=== PATIENT | male | born 1940 | race Caucasian/White ===

== ENCOUNTER 2018-04-27 10:50 | Inpatient (IN) | payer OTHER, MEDICARE ==
--- NOTE | 2018-04-27 11:11 | PDOC ---
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 The patient tried taking saline was urged to not work. Has been having a cough but denies chest pain. Denies fevers. - Physicial Exam PE: 04/27/18 11:57 GENERAL: Awake, alert, and fully oriented, +cachetic, +ill appearing HEAD: No signs of trauma EYES: EOMI, sclera anicteric, conjunctiva clear ENT: Auricles normal inspection, hearing grossly normal, nares patent, Moist mucosa NECK: Normal ROM, supple, LUNGS: Ronchorous breath sounds bilaterally, worse on left than right. Tachypneic. HEART: Regular rate and rhythm, normal S1 and S2, no murmurs, rubs or gallops EXTREMITIES: Normal range of motion, no edema. No clubbing or cyanosis. No cords, erythema, or tenderness NEUROLOGICAL: Cranial nerves II through XII grossly intact. Normal speech SKIN: Warm, Dry, normal turgor, no rashes or lesions noted. - Medical Decision Making 04/27/18 12:00 Vital Signs Temp Pulse Resp BP Pulse Ox 97.7 F 92 H 24 H 140/82 91 L 04/27/18 11:02 04/27/18 11:02 04/27/18 11:02 04/27/18 11:02 04/27/18 11:02 This is an end stage cancer patient currently on hospice with increasing difficulty breathing. R/o PNA, bronchitis. Pt noted to be hypoxic. Will need high flow nasal cannula Chest xray, labs, blood cultures. Will talk to patient family and patient in regards for desired level of care and advanced directives. Pt is DNR. Heart Score/ECG Review #1 ECG reviewed & interpreted by me at: 11:10 04/27/18 11:10 atrial flutter with variable AV block, 78, TWI II, III, avf, V4-V6, no std/patricia, QTC 469 msec
--- NOTE | 2018-04-27 11:35 | PDOC ---
History of Present Illness - General Chief Complaint: Shortness of Breath Stated Complaint: DIFFICULT BREATHING Time Seen by Provider: 04/27/18 10:59 History Source: Patient, Significant Other Exam Limitations: No Limitations - History of Present Illness Initial Comments: 04/27/18 11:27 [id number] with h/o stage IV esophageal CA with mets to brain, dx 5 mo ago, last chemo 2 weeks ago, started hospice 3 days ago, also has renal CA, kidney stones , migraines, glaucoma, diverticulosis, pacemaker indwelling, and h/o pneumonia, who p/w cough for the past several days and SOB onset last night. 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 He has had worsening productive cough, unable to lay down flat 2/2 difficulty breathing. Denies f/c/n/v/d/c, blood in sputum, dysuria, chest pain, abdominal pain, or any other new symptoms. Past History - Past Medical History Allergies/Adverse Reactions: Allergies Allergy/AdvReac Type Severity Reaction Status Date / Time No Known Allergies Allergy Verified 11/12/15 09:04 Home Medications: Ambulatory Orders Bimatoprost [Lumigan] 1 drop OU HS 03/09/16 Brinzolamide/Brimonidine Tart [Simbrinza 1%-0.2% Eye Drops] 1 drop OU BID Cabergoline 0.25 mg PO WEEKLY 03/09/16 Gabapentin 300 mg PO Q4H 03/09/16 Levothyroxine [Synthroid -] 100 mcg PO DAILY 03/09/16 Omeprazole 20 mg PO TID 03/09/16 Acetaminophen [Tylenol .Regular Strength -] 650 mg PO Q4H PRN #0 tablet Bimatoprost [Lumigan] 1 drop IO HS 04/27/18 LORazepam [Ativan] 0.5 mg PO TID 04/27/18 Ondansetron [Ondansetron Odt] 8 mg SL TID 04/27/18 Timolol Maleate [Istalol] 1 ml OU HS 04/27/18 Anemia: No Asthma: Yes (ASSOCIATED WITH GERD) Cancer: Yes (ESOPHAGEAL CANCERW/BRAIN AND CHEST LYMPH NODES METASTASIS stage 4) Cardiac Disorders: Yes (PACEMAKER-MEDTRONIC) CVA: No COPD: No CHF: No Dementia: No Diabetes: No GI Disorders: Yes (GERD W/HIATAL HERNIA,DIVERTICULOSIS) Disorders: Yes (BPH) HTN: No Hypercholesterolemia: No Liver Disease: No Seizures: No Thyroid Disease: Yes (HYPOTHYROIDISM) - Surgical History Abdominal Surgery: No Appendectomy: No Cardiac Surgery: Yes (PACEMAKER) Cholecystectomy: No Lung Surgery: No Neurologic Surgery: No Orthopedic Surgery: Yes (LAMINECTOMY WITH FUSION) - Immunization History Immunization Up to Date: No - Suicide/Smoking/Psychosocial Hx Smoking History: Former smoker Have you smoked in the past 12 months: No Number of Cigarettes Smoked Daily: 20 If you are a former smoker, when did you quit?: 50 yrs ago Information on smoking cessation initiated: No Hx Alcohol Use: No Drug/Substance Use Hx: No Substance Use Type: None Hx Substance Use Treatment: No Review of Systems - Review of Systems Able to Perform ROS?: Yes Comments:: GEN: malaise, generalized weakness, no fever, chills, or weight change HEENT: no ear pain, sore throat, vision change, or eye pain CV: no chest pain, palpitations, lightheadedness, syncope, or edema RESP: cough, SOB GI: no abdominal pain, nausea, vomiting, diarrhea, constipation, or white/black/ bloody stool : no dysuria, hematuria, incontinence, retention, bleeding, or discharge MSK: no neck/back pain, muscle weakness/pain, or joint swelling/pain NEURO: no headache, seizure, vertigo, numbness, tingling, or focal weakness PSYCH: no substance use, no behavior change SKIN: no jaundice, no rash ROS otherwise negative except as noted in HPI *Physical Exam - Vital Signs Last Vital Signs Temp Pulse Resp BP Pulse Ox 97.7 F 92 H 24 H 140/82 91 L 04/27/18 11:02 04/27/18 11:02 04/27/18 11:02 04/27/18 11:02 04/27/18 11:02 - Physical Exam Comments: GENERAL: chronically ill-appearing, A/Ox4, no distress, answers questions appropriately, speaking 1-3 word sentences HEENT: PERRLA, EOMI, moist mucous membranes NECK/BACK: no midline ttp, no spinal stepoff or deformity, no hematoma, full ROM , neck supple CARDIOVASCULAR: pacer and port in place chest wall, heart regular rate/rhythm, normal S1S2, no MGR, strong peripheral pulses, capillary refill 4 seconds, extremities wwp, no edema LUNGS/RESPIRATORY: mild-moderate respiratory distress, on non-rebreather, coarse lung sounds and cough all audible across the room, b/l coarse lung sounds on auscultation without focal areas of diminished lung sounds GI/ABDOMEN: symmetric [id number], normoactive BS, soft, no ttp, no midline pulsatile masses : no CVA tenderness EXTREMITIES: no muscle atrophy, no acute deformity SKIN: warm and dry, no pallor, no jaundice, no rash, no bruising, no skin breakdown, no cuts, no lesions NEUROLOGICAL: GCS 15, CN II-XII grossly intact, 5/5 strength proximally and distally, no facial droop Moderate Sedation - Procedure Monitoring Vital Signs: Procedure Monitoring Vital Signs Temperature 97.7 F 04/27/18 11:02 Pulse Rate 92 H 04/27/18 11:02 Respiratory Rate 24 H 04/27/18 11:02 Blood Pressure 140/82 04/27/18 11:02 O2 Sat by Pulse Oximetry (%) 91 L 04/27/18 11:02 Heart Score/ECG Review #1 04/27/18 11:08 A-flutter, rate 78, deep TWI in leads II, III, aVF, V3-V6. ED Treatment Course - LABORATORY CBC & Chemistry Diagram: 04/27/18 11:37 04/27/18 11:37 - RADIOLOGY Radiology Studies Ordered: Category Date Time Status CHEST X-RAY PORTABLE* [RAD] Stat Radiology 04/27/18 11:16 Ordered Medical Decision Making - Medical Decision Making 04/27/18 12:06 Pt with h/o CHF who p/w SOB, cough, orthopnea same as their prior CHF. Initial Vital Signs Temp Pulse Resp BP Pulse Ox 97.7 F 92 H 24 H 140/82 91 L 04/27/18 11:02 04/27/18 11:02 04/27/18 11:02 04/27/18 11:02 04/27/18 11:02 Exam: As noted in Physical Exam section. DDX IBNLT: CHF, pulmonary edema, COPD, asthma, other lung disease, PNA/ bronchitis, anemia, ACS, pericarditis, tamponade, AD, PE, PTX, allergic reaction , malignancy (e.g. causing pericardial effusion or vascular shunt), other infection, pulmonary HTN, etc. W/U ordered: CBCD CMP Mg Phos Troponin CK CKMB BNP Blood Gas UA UCx EKG CXR TX ordered: NTG SL then ggt, Lasix IV push, O2, BiPAP, Pt positioned with head of bed up Important to check Phos as severe hypophos can cause decr contractility and ventilation and rhabdo. EKG: Reviewed; results as noted in ECG Review section. RAD/CHEST X-RAY PORTABLE* Chest: Cough. A single AP view of the chest has been submitted. Since 03/10/2018, there are increased bibasilar markings especially on the left and an early infiltrate cannot be excluded. There is some fluid in the horizontal fissure. There is a prominent heart, unfolded aorta, prominent pancho, scoliosis with convexity to the right, left pacemaker and right jugular line. There is evidence of previous left shoulder surgery. Correlation and follow-up recommended. Laboratory Tests 04/27/18 04/27/18 04/27/18 11:37 11:37 11:37 WBC 10.8 H RBC 4.41 Hgb 15.0 Hct 43.4 MCV 98.3 H MCH 33.9 H MCHC 34.5 RDW 14.3 Plt Count 144 MPV 9.4 Absolute Neuts (auto) 9.5 H Neutrophils % 87.8 H D Lymphocytes % 2.3 L D Monocytes % 9.6 Eosinophils % 0.0 D Basophils % 0.3 Nucleated RBC % 0 PT with INR 13.60 H INR 1.15 H Sodium 136 Potassium 4.7 Chloride 102 Carbon Dioxide 25 Anion Gap 9 BUN 30 H Creatinine 1.1 Creat Clearance w eGFR > 60 Random Glucose 119 H Lactic Acid Calcium 9.7 Phosphorus 2.8 Magnesium 2.0 Total Bilirubin 0.5 AST 24 ALT 12 L Alkaline Phosphatase 75 Creatine Kinase 54 Troponin I 0.02 B-Natriuretic Peptide 3452.5 H Total Protein 7.1 Albumin 3.2 L Urine Color Urine Appearance Urine pH Ur Specific Daisy Urine Protein Urine Glucose (UA) Urine Ketones Urine Blood Urine Nitrite Urine Bilirubin Urine Urobilinogen Ur Leukocyte Esterase Urine WBC (Auto) Urine RBC (Auto) Urine Bacteria Hyaline Casts Urine Mucus Blood Type Antibody Screen 04/27/18 04/27/18 04/27/18 11:37 12:25 12:25 WBC RBC Hgb Hct MCV MCH MCHC RDW Plt Count MPV Absolute Neuts (auto) Neutrophils % Lymphocytes % Monocytes % Eosinophils % Basophils % Nucleated RBC % PT with INR INR Sodium Potassium Chloride Carbon Dioxide Anion Gap BUN Creatinine Creat Clearance w eGFR Random Glucose Lactic Acid 3.1 H* Calcium Phosphorus Magnesium Total Bilirubin AST ALT Alkaline Phosphatase Creatine Kinase Troponin I B-Natriuretic Peptide Total Protein Albumin Urine Color Yellow Urine Appearance Slcloudy Urine pH 6.0 Ur Specific Daisy 1.024 Urine Protein 2+ H Urine Glucose (UA) Negative Urine Ketones 1+ H Urine Blood 2+ H Urine Nitrite Positive Urine Bilirubin 2.0 Urine Urobilinogen 2.0 Ur Leukocyte Esterase 2+ H Urine WBC (Auto) 93 Urine RBC (Auto) 420 Urine Bacteria Few Hyaline Casts 2 Urine Mucus Rare Blood Type A NEGATIVE Antibody Screen Negative Reassessment: Exam unchanged. Vital Signs Temperature 97.7 F 04/27/18 11:02 Pulse Rate 92 H 04/27/18 11:02 Respiratory Rate 24 H 04/27/18 11:02 Blood Pressure 140/82 04/27/18 11:02 O2 Sat by Pulse Oximetry (%) 91 L 04/27/18 11:02 04/27/18 14:09 The Pt is unsafe for discharge at this time. They require further hospital observation, workup, and treatment. Pt needs IV abx given b/l PNA. Microblog sent to Dr. Sung for admission. Blank Decision to Admit order is placed per ED protocol. 04/27/18 14:[address] Sung; in agreement with plan for admission to IP Med/Surg. I am placing an order for flu swab and have sent the sample. *DC/Admit/Observation/Transfer Diagnosis at time of Disposition: Stage IV malignant neoplasm of esophagus Bilateral pneumonia Qualifiers: Pneumonia type: due to unspecified organism Lung location: unspecified part of lung Qualified Code(s): J18.9 - Pneumonia, unspecified organism UTI (urinary tract infection) Qualifiers: Urinary tract infection type: acute cystitis Hematuria presence: with hematuria Qualified Code(s): N30.01 - Acute cystitis with hematuria - Discharge Dispostion Condition at time of disposition: Guarded Decision to Admit order: Yes - Referrals Referrals: Avtar Melgar MD [Primary Care Provider] - - Patient Instructions - Post Discharge Activity
[2018-04-27] MEDS ORDERED: SODIUM CHLORIDE FOR INHALATION 3 ML VIAL.NEB IH ONE (12:05)
[2018-04-27] MEDS ORDERED: PIPERACILLIN/TAZOB 3.375 GM 3.375 GM in DEXTROSE 5%-WATER - 50 ML IVPB ONE (12:28)
[2018-04-27] MEDS ORDERED: VANCOMYCIN 1 GM in D5W (PRE-DOCKED) 1,000 MG/250 ML IVPB ONE (12:28)
[2018-04-27 13:05] LABS: BASO % 0.3 % (0-2.0); HEMATOCRIT 43.4 % (35.4-49); LYMPH % 2.3 % (8-40); MCH 33.9 pg (25.7-33.7); MCHC 34.5 g/dl (32.0-35.9); MEAN CELL VOLUME 98.3 fl (80-96); MEAN PLT VOLUME 9.4 fl (7.5-11.1); MONO % 9.6 % (3.8-10.2); NEUT % 87.8 % (42.8-82.8); PLATELET COUNT 144 K/MM3 (134-434); RBC 4.41 M/mm3 (4.00-5.60); RDW 14.3 % (11.9-15.9); WHITE BLOOD COUNT 10.8 K/mm3 (4.0-10.0)
[2018-04-27] MEDS ORDERED: PIPERACILLIN/TAZOB 3.375 GM 3.375 GM/50 ML BAG IVPB ONE ×2 (13:06→18:12)
[2018-04-27] MEDS ORDERED: VANCOMYCIN 1 GRAM (PRE-DOCKED) 1,000 MG/250 ML BAG IVPB ONE (13:06)
[2018-04-27 13:14] LABS: INR 1.15 (0.83-1.09); PROTHROMBIN TIME (PATIENT) 13.6 SEC (9.7-13.0)
[2018-04-27 13:52] LABS: ALBUMIN 3.2 g/dl (3.4-5.0); ALK PHOS 75 U/L (45-117); ANION GAP 9 MMOL/L (8-16); BILIRUBIN,TOTAL 0.5 mg/dL (0.2-1); BLOOD UREA NITROGEN 30 mg/dL (7-18); CALCIUM 9.7 mg/dL (8.5-10.1); CHLORIDE 102 mmol/L (98-107); CO2 25 mmol/L (21-32); CREATININE 1.1 mg/dL (0.55-1.3); GLUCOSE,RANDOM 119 mg/dL (74-106); N-TERMINAL BNP 3452.5 pg/ml (5-450); PHOSPHOROUS 2.8 mg/dL (2.5-4.9); POTASSIUM 4.7 mmol/L (3.5-5.1); SGOT/AST 24 U/L (15-37); SGPT/ALT 12 U/L (13-61); SODIUM 136 mmol/L (136-145); TOT PROT 7.1 g/dl (6.4-8.2)
[2018-04-27 14:07] LABS: URINE APPEARANCE SLCLOUDY; URINE COLOR YELLOW; URINE GLUCOSE (UA) NEGATIVE (NEGATIVE); URINE KETONE 1+ (NEGATIVE); URINE LEUK ESTERASE 2+ (NEGATIVE); URINE NITRITE POSITIVE (NEGATIVE); URINE PROTEIN 2+ (NEGATIVE)
[2018-04-27 14:11] LABS: URINE BACTERIA FEW /hpf (NONE SEEN); URINE HYALINE CAST 2 /lpf; URINE MUCUS RARE
--- NOTE | 2018-04-27 15:29 | EKG ---
Test Reason : Blood Pressure : / mmHG Vent. Rate : 078 BPM Atrial Rate : 286 BPM P-R Int : 000 ms QRS Dur : 084 ms QT Int : 412 ms P-R-T Axes : 000 -21 -87 degrees QTc Int : 469 ms ATRIAL FLUTTER WITH VARIABLE A-V BLOCK PROLONGED QT ABNORMAL ECG Confirmed by Noe Dinero MD ([id number]) on 04/27/2018 3:29:10 PM Referred By: Confirmed By:Noe Dinero MD
[2018-04-27] MEDS ORDERED: GABAPENTIN 300 MG CAPSULE (FP) PO SCH (16:00)
[2018-04-27] MEDS ORDERED: ACETAMINOPHEN 325 MG TABLET (FP) PO PRN (16:04)
--- NOTE | 2018-04-27 16:09 | HP ---
Admitting History and Physical - Primary Care Physician PCP: Avtar Melgar - Admission Chief Complaint: unable to obtain History of Present Illness: Mr Machuca is a 78 year old male who was brought in by his family secondary to difficulty breathing. Patient has a history of metastatic esophageal cancer and is on hospice. Over the past 2-3 days they noted that he was eating and drinking less and he was having more difficulty breathing. Today it appeared he was really struggling and they brought him in for further evaluation. Family is at bedside and stated that Mr Machuca has not slept well during this time, since he is hospice they requested that I do not wake him and I respected their wishes and let him sleep for his comfort. History Source: Family Member Limitations to Obtaining History: Clinical Condition - Past Medical History PUBLIC RELATIONS PROFESSIONAL: Yes: Other (metastatic nodule from prostate cancer treated with radiation and resolved on recent MRI Also, pituitary tumor treated with carbogoline) Cardiovascular: Yes: HTN, Other (pacemaker recently inserted 2016 that his MRI safe because of persistent weakness and bradycardia) Pulmonary: Yes: Other (pneumonia an ex-smoker) Gastrointestinal: Yes: Cancer (esophagus), Other (esophageal cancer treated with surgery and chemotherapy) Renal/: Yes: BPH, Other (renal cell ca s/p nephrectomy) Heme/Onc: Yes: Cancer (esophageal ca), Current Chemotherapy (chemotherapy every 3 weeks at the [facility] with [id number]) Psych: Yes: Anxiety Musculoskeletal: Yes: Chronic low back pain (history of lumbosacral disc surgery ), Other (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 No: Other (pituitary adenoma) - Past Surgical History Past Surgical History: Yes: Laminectomy (LS), Nephrectomy (right) - Smoking History Smoking history: Former smoker Have you smoked in the past 12 months: No Aproximately how many cigarettes per day: 20 If you are a former smoker, when did you quit?: 50 yrs ago - Alcohol/Substance Use Hx Alcohol Use: No History of Substance Use: reports: None - Social History Usual Living Arrangement: Yes: With Spouse ADL: Support Services Occupation: retired History of Recent Travel: No Home Medications - Allergies Allergies/Adverse Reactions: Allergies Allergy/AdvReac Type Severity Reaction Status Date / Time No Known Allergies Allergy Verified 11/12/15 09:04 - Home Medications Home Medications: Ambulatory Orders Bimatoprost [Lumigan] 1 drop OU HS 03/09/16 Brinzolamide/Brimonidine Tart [Simbrinza 1%-0.2% Eye Drops] 1 drop OU BID Cabergoline 0.25 mg PO WEEKLY 03/09/16 Gabapentin 300 mg PO Q4H 03/09/16 Levothyroxine [Synthroid -] 100 mcg PO DAILY 03/09/16 Omeprazole 20 mg PO TID 03/09/16 Acetaminophen [Tylenol .Regular Strength -] 650 mg PO Q4H PRN #0 tablet Bimatoprost [Lumigan] 1 drop IO HS 04/27/18 LORazepam [Ativan] 0.5 mg PO TID 04/27/18 Ondansetron [Ondansetron Odt] 8 mg SL TID 04/27/18 Timolol Maleate [Istalol] 1 ml OU HS 04/27/18 Family Disease History - Family Disease History Family Disease History: Other: Father ( at 78 of a CVA), Mother (lived to 100) Review of Systems Unable to obtain ROS, reason: patient sleeping Physical Examination Vital Signs: Vital Signs Temperature 36.5 C 04/27/18 11:02 Pulse Rate 65 04/27/18 15:51 Respiratory Rate 19 04/27/18 15:51 Blood Pressure 138/83 04/27/18 15:51 O2 Sat by Pulse Oximetry (%) 93 L 04/27/18 15:51 Constitutional: Yes: No Distress, Thin Cardiovascular: Yes: Regular Rate and Rhythm. No: Gallop, Murmur, Rub Respiratory: Yes: Regular, On Venti-Mask, Rhonchi. No: CTA Bilaterally, Rales, Tachypnea, Wheezes Gastrointestinal: Yes: Normal Bowel Sounds, Soft. No: Distention, Tenderness Extremities: Yes: WNL Edema: No Labs: CBC, BMP 04/27/18 11:37 04/27/18 11:37 Imaging - Results Chest X-ray: Report Reviewed, Image Reviewed Problem List - Problems (1) Bilateral pneumonia Assessment/Plan: -unclear if aspiration vs CAP -consult ID -will place on [facility] Code(s): J18.9 - PNEUMONIA, UNSPECIFIED ORGANISM Qualifiers: Pneumonia type: due to unspecified organism Lung location: unspecified part of lung Qualified Code(s): J18.9 - Pneumonia, unspecified organism (2) Acute respiratory failure with hypoxia Assessment/Plan: -treat pneumonia -venti mask for oxygenation Code(s): J96.01 - ACUTE RESPIRATORY FAILURE WITH HYPOXIA (3) Stage IV malignant neoplasm of esophagus Assessment/Plan: -on hospice -patient taking gabapentin 300mg q4h, dilaudid 2mg qid, ativan 0.5mg tid, and zofran 8mg tid -recognize that these are high doses of medications, however family states patient has severe pain and nausea/vomiting -will continue regimen as patient is hospice and do not want him in pain or uncomfortable -soft diet Code(s): C15.9 - MALIGNANT NEOPLASM OF ESOPHAGUS, UNSPECIFIED (4) UTI (urinary tract infection) Assessment/Plan: -noted on urinalysis -joie as above -follow up culture results Code(s): N39.0 - URINARY TRACT INFECTION, SITE NOT SPECIFIED Qualifiers: Urinary tract infection type: acute cystitis Hematuria presence: with hematuria Qualified Code(s): N30.01 - Acute cystitis with hematuria (5) Glaucoma Assessment/Plan: -continue eye drops Code(s): H40.9 - UNSPECIFIED GLAUCOMA (6) Hypothyroid Assessment/Plan: -continue synthroid Code(s): E03.9 - HYPOTHYROIDISM, UNSPECIFIED
[2018-04-27] MEDS: DEXTROSE 5%-0.45% SALINE 1,000 ML IV SCH (17:00)
[2018-04-27] MEDS ORDERED: HYDROmorphone HCL 2 MG TABLET ONE ×2 (17:11→21:36)
[2018-04-27] MEDS ORDERED: GABAPENTIN 100 MG CAPSULE (FP) ONE ×2 (17:13→21:36)
[2018-04-27] MEDS: HYDROmorphone HCL 2 MG TABLET PO SCH ×3 (17:26→22:11)
[2018-04-27] MEDS: GABAPENTIN 300 MG CAPSULE (FP) PO SCH ×2 (17:27→22:12)
[2018-04-27] MEDS: PIPERACILLIN/TAZOB 3.375 GM 3.375 GM in DEXTROSE 5%-WATER - 50 ML IVPB SCH (18:18)
[2018-04-27] MEDS: LACTOBACILLUS ACIDOPHILUS 1 TABLET PO SCH (18:18)
[2018-04-27] MEDS ORDERED: PANTOPRAZOLE 40 MG TABLET (FP) ONE (21:36)
[2018-04-27] MEDS ORDERED: LORazepam 0.5 MG TABLET ONE (21:36)
[2018-04-27] MEDS: LATANOPROST 0.005% OPHTH SOLN 2.5ML BOTTLE OU SCH (21:40)
[2018-04-27] MEDS: PANTOPRAZOLE 20 MG TABLET (FP) PO SCH (21:41)
[2018-04-27] MEDS ORDERED: PATIENT'S OWN MEDICATION (NON-FORMULARY) (Bimatoprost [Lumigan] 1 DROP) OU SCH (22:00)
[2018-04-27] MEDS ORDERED: PATIENT'S OWN MEDICATION (NON-FORMULARY) (Omeprazole 20 MG) PO SCH (22:00)
[2018-04-27] MEDS ORDERED: PATIENT'S OWN MEDICATION (NON-FORMULARY) (Ondansetron [Zofran *Odt*] 8 MG) SL SCH (22:00)
[2018-04-27] MEDS: LORazepam 0.5 MG TABLET PO SCH (22:11)
[2018-04-27] MEDS: ONDANSETRON *ODT* 4 MG TABLET SL SCH (22:12)
[2018-04-28] MEDS ORDERED: PIPERACILLIN/TAZOBACTAM 3.375 GM VIAL IVPB ONE ×3 (00:41→16:40)
[2018-04-28] MEDS ORDERED: DEXTROSE 5%-WATER - 50 ML IVPB ONE ×3 (00:41→16:40)
[2018-04-28] MEDS: PIPERACILLIN/TAZOB 3.375 GM 3.375 GM in DEXTROSE 5%-WATER - 50 ML IVPB SCH ×2 (01:01→17:08)
[2018-04-28] MEDS: GABAPENTIN 300 MG CAPSULE (FP) PO SCH ×6 (01:03→22:45)
[2018-04-28 04:10] VITALS: BMI 17.8
[2018-04-28] MEDS: LEVOTHYROXINE NA 100 MCG TABLET (FP) PO SCH (06:57)
[2018-04-28] MEDS: PANTOPRAZOLE 20 MG TABLET (FP) PO SCH ×3 (06:58→22:39)
[2018-04-28] MEDS: ONDANSETRON *ODT* 4 MG TABLET SL SCH ×3 (06:58→22:39)
[2018-04-28] MEDS: LORazepam 0.5 MG TABLET PO SCH ×3 (06:59→22:39)
[2018-04-28] MEDS ORDERED: TIMOLOL MALEATE OU SCH (07:00)
[2018-04-28 07:27] LABS: BASO % 0.2 % (0-2.0); HEMATOCRIT 40.2 % (35.4-49); HEMOGLOBIN 14.3 GM/dL (11.7-16.9); LYMPH % 5.9 % (8-40); MCH 34.7 pg (25.7-33.7); MCHC 35.5 g/dl (32.0-35.9); MEAN CELL VOLUME 97.7 fl (80-96); MEAN PLT VOLUME 9.7 fl (7.5-11.1); NEUT % 85.9 % (42.8-82.8); PLATELET COUNT 108 K/MM3 (134-434); RBC 4.11 M/mm3 (4.00-5.60); RDW 14.1 % (11.9-15.9); WHITE BLOOD COUNT 6.4 K/mm3 (4.0-10.0)
[2018-04-28 07:33] LABS: ANION GAP 5 MMOL/L (8-16); BLOOD UREA NITROGEN 23 mg/dL (7-18); CALCIUM 9.4 mg/dL (8.5-10.1); CHLORIDE 102 mmol/L (98-107); CO2 29 mmol/L (21-32); CREATININE 0.9 mg/dL (0.55-1.3); GLUCOSE,RANDOM 102 mg/dL (74-106); PHOSPHOROUS 2.2 mg/dL (2.5-4.9); POTASSIUM 4.4 mmol/L (3.5-5.1); SODIUM 135 mmol/L (136-145)
[2018-04-28] MEDS: IPRATROPIUM BR 0.02% 0.5 MG/2.5 ML VIAL.NEB. NEB PRN (08:50)
[2018-04-28] MEDS: ALBUTEROL SO4 0.083% IH SOL 2.5 MG/3 ML VIAL.NEB. NEB PRN ×2 (08:50→13:45)
[2018-04-28 08:55] LABS: URINE APPEARANCE CLEAR; URINE BILIRUBIN NEGATIVE (<2.0 mg/dL); URINE COLOR YELLOW; URINE GLUCOSE (UA) NEGATIVE (NEGATIVE); URINE KETONE NEGATIVE (NEGATIVE); URINE LEUK ESTERASE TRACE (NEGATIVE); URINE NITRITE POSITIVE (NEGATIVE); URINE PROTEIN 2+ (NEGATIVE); URINE UROBILINOGEN NEGATIVE mg/dL (0.2-1.0)
[2018-04-28 09:11] LABS: EPI CELLS RARE /HPF (FEW); URINE BACTERIA FEW /hpf (NONE SEEN)
[2018-04-28] MEDS ORDERED: PIPERACILLIN/TAZOB 3.375 GM 3.375 GM in DEXTROSE 5%-WATER - 50 ML IVPB SCH ×2 (10:00→10:30)
[2018-04-28] MEDS ORDERED: ALBUTEROL SO4 0.083% IH SOL 2.5 MG/3 ML VIAL.NEB. NEB SCH (10:00)
[2018-04-28] MEDS ORDERED: ACETYLCYSTEINE 20% 200MG/ML 30 ML VIAL *FOR ORAL / INH USE ONLY NEB SCH (10:00)
[2018-04-28] MEDS: HYDROmorphone HCL 2 MG TABLET PO SCH ×4 (10:06→22:40)
[2018-04-28] MEDS: LACTOBACILLUS ACIDOPHILUS 1 TABLET PO SCH (10:06)
[2018-04-28] MEDS: TIMOLOL 0.5% OPHTHALMIC SOL 5 ML BOTTLE OU SCH (10:07)
[2018-04-28] MEDS: DEXTROSE 5%-0.45% SALINE 1,000 ML IV SCH ×2 (10:10→17:09)
[2018-04-28] MEDS ORDERED: NAPH,MB-DB/K PH,MBDB POWDER PACKET PO ONE (10:33)
--- NOTE | 2018-04-28 10:33 | PN ---
Physical Exam: SUBJECTIVE: Patient seen and examined by me at bedside No acute events Patient is in bed eating breakfast Reports breathing has improved, however, states he is not able to cough and clear the sputum. Patient otherwise denies any chest pain, palpitations, nausea, vomiting, abdominal pain, headaches, loss of consciousness OBJECTIVE: Vital Signs Period Temp Pulse Resp BP Sys/Jhaveri Pulse Ox Last 24 Hr 97.7 F-98.3 F 61-92 18-24 123-147/65-83 91-96 GENERAL: The patient is awake, alert, and fully oriented, in no acute distress. EYES: Sclera anicteric, conjunctiva clear. No ptosis. ENT: Moist mucous membranes. LUNGS: Bilateral rhonchi. no accessory muscle use. 02 NC HEART: RRR, normal S1 and S2 without murmur, rub or gallop. ABDOMEN: Soft, nontender, nondistended, normoactive bowel sounds, no guarding EXTREMITIES: No edema. NEUROLOGICAL: No focal deficits. No facial asymmetry Laboratory Results 04/28/18 06:00 04/28/18 06:00 04/28/18 06:00 Calcium 9.4 Phosphorus 2.2 L Magnesium 2.0 Urine Color Yellow 04/28/18 07:00 Urine Appearance Clear 04/28/18 07:00 Urine pH 6.0 (5.0-8.0) 04/28/18 07:00 Ur Specific [place] 1.028 (1.010-1.035) 04/28/18 07:00 Urine Protein 2+ (NEGATIVE) H 04/28/18 07:00 Urine Glucose (UA) Negative (NEGATIVE) 04/28/18 07:00 Urine Ketones Negative (NEGATIVE) 04/28/18 07:00 Urine Blood 3+ (NEGATIVE) H 04/28/18 07:00 Urine Nitrite Positive (NEGATIVE) 04/28/18 07:00 Urine Bilirubin Negative (<2.0 mg/dL) 04/28/18 07:00 Ur Leukocyte Esterase Trace (NEGATIVE) 04/28/18 07:00 Ur Epithelial Cells Rare /HPF (FEW) 04/28/18 07:00 Urine Bacteria Few /hpf (NONE SEEN) 04/28/18 07:00 Urine Mucus Rare 04/27/18 12:25 Active Medications Generic Name Dose Route Start Last Admin Trade Name Freq PRN Reason Stop Dose Admin Acetaminophen 650 mg 04/27/18 16:04 Tylenol - PO Q4H PRN FEVER Acetylcysteine 200 mg 04/28/18 10:00 Mucomyst 20 Oral / Inh Use Only* NEB RBID LAYTON Albuterol Sulfate 1 amp 04/27/18 16:04 Ventolin 0.083% Nebulizer Soln - NEB Q6H PRN SHORT OF BREATH/WHEEZING Albuterol Sulfate 1 amp 04/28/18 10:00 Ventolin 0.083% Nebulizer Soln - NEB RBID LAYTON Gabapentin 300 mg 04/27/18 18:00 04/28/18 10:06 Neurontin - PO 300 mg Q4HPO LAYTON Administration Hydromorphone HCl 2 mg 04/27/18 16:03 04/28/18 10:06 Dilaudid - PO 2 mg QID LAYTON Administration Dextrose/Sodium Chloride 1,000 mls @ 42 mls/hr 04/27/18 16:15 04/28/18 10:10 D5-1/2ns - IV 42 mls/hr ASDIR LAYTON Administration Piperacillin Sod/Tazobactam 50 mls @ 100 mls/hr 04/28/18 10:00 Sod 3.375 gm/ Dextrose IVPB Q8H-IV [facility] Protocol Ipratropium [place] 1 amp 04/27/18 16:04 Atrovent 0.02% Nebulizer - NEB Q6H PRN WHEEZING Lactobacillus Acidophilus 1 tab 04/27/18 16:15 04/28/18 10:06 Bacid - PO 1 tab DAILY LAYTON Administration Latanoprost 1 drop 04/27/18 22:00 04/27/18 21:40 Xalatan 0.005% Eye Drops - OU 1 drop HS LAYTON Administration Levothyroxine Sodium 100 mcg 04/28/18 07:00 04/28/18 06:57 Synthroid - PO 100 mcg ACBK LAYTON Administration Lorazepam 0.5 mg 04/27/18 22:00 04/28/18 06:59 Ativan - PO 0.5 mg TID LAYTON Administration Non-Formulary Medication 0.25 mg 04/28/18 10:00 Cabergoline PO Lazar@1000 LAYTON Ondansetron HCl 8 mg 04/27/18 22:00 04/28/18 06:58 Zofran Odt - SL 8 mg TID LAYTON Administration Pantoprazole Sodium 20 mg 04/27/18 22:00 04/28/18 06:58 Protonix - PO 20 mg TID LAYTON Administration Timolol Maleate 1 drop 04/28/18 10:00 04/28/18 10:07 Timoptic 0.5% OU 1 drop DAILY LAYTON Administration ASSESSMENT/PLAN: Patient is a 78 year old male who was brought in by his family due to difficulty breathing and was found to have bilateral pneumonia. Patient admitted for further monitoring and management. Sepsis Secondary to Bilateral Pneumonia -Unsure if Aspiration vs CAP -Patient on initial presentation with HR >90 and RR >20 -Chest X-Ray revealed infiltrate -Zosyn 3.375gm IVPB Q8H -ID consult placed -Aspiration precautions -Mucomyst ordered as patient is unable to cough and clear his sputum -02 as needed Acute Hypoxic Respiratory Failure-Resolving -Likely secondary to pneumonia -Was placed on Venti-mask and is now only requiring 02 NC -Continue IV antibiotics with Zosyn 3.375gm IVPB Q8H -Continue Albuterol Nebulizer 1amp Q6H prn and Atrovent Q6H prn -Aspiration precautions -Maintain 02 >95% Stage IV Esophageal Cancer -Patient currently on Hospice -Continue Gabapentin 300mg Q4H, Dilaudid 2mg QID, Ativan 0.5mg TID, and Zofran 8mg TID -Patient and patient's family request that he remains on his medication regimen as they do not want him uncomfortable or in pain -Continue with Soft Diet -Supportive therapy Urinary Tract Infection -Urine cultures growing Staph coagulase -Continue IV Abx with Zosyn 3.375gm IVPB Q8H -Sensitivities pending Glaucoma -Continue home eye drops with Timoptic 1 drop ou daily and Xalatan 1 drop ou HS Hypothyroidism -Synthroid 100mcg before breakfast Pituitary Adenoma -Continue home medication Cabergoline 0.25mg every sunday F/E/N -D5-1/2 NS @42mls/hr -Hypophosphatemia. Replete and repeat -Soft diet Prophylaxis -High risk. -Protonix 20mg TID for GI. Disposition -DNR/DNI -Continue IV abx for Pneumonia Cristina Orellana [id number] Visit type - Emergency Visit Emergency Visit: Yes ED Registration Date: 04/27/18 Care time: The patient presented to the Emergency Department on the above date and was hospitalized for further evaluation of their emergent condition. - New Patient This patient is new to me today: Yes Date on this admission: 04/28/18 - Critical Care Critical Care patient: No
[2018-04-28] MEDS ORDERED: CABERGOLINE 0.5 MG PO SCH (11:00)
[2018-04-28] MEDS ORDERED: PT OWN MED DRAWER 7, Y5N ONE ×2 (11:41→23:47)
--- NOTE | 2018-04-28 13:13 | PN ---
Teaching Attending Note Name of Resident: Cristina Orellana ATTENDING PHYSICIAN STATEMENT I saw and evaluated the patient. I reviewed the resident's note and discussed the case with the resident. I agree with the resident's findings and plan as documented. SUBJECTIVE: Mr Machuca says he is well today. States his breathing is much improved. Has chronic pain but this is controlled. No cp or n/v. OBJECTIVE: Last Vital Signs Temp Pulse Resp BP Pulse Ox 36.3 C L 93 H 18 134/87 97 04/28/18 09:00 04/28/18 09:00 04/28/18 09:00 04/28/18 09:00 04/28/18 09:00 Gen: nad, thin Pulm: ronchi bilaterally CV: rrr w/o m/r/g Abd: +bs, s/nt/nd Ext: no c/c/e CBC, BMP 04/28/18 06:00 04/28/18 06:00 ASSESSMENT AND PLAN: (1) Bilateral pneumonia Assessment/Plan: -unclear if aspiration vs CAP -ID consulted -continue zosyn currently but will await ID evaluation -may be able to de-escalate Code(s): J18.9 - PNEUMONIA, UNSPECIFIED ORGANISM Qualifiers: Pneumonia type: due to unspecified organism Lung location: unspecified part of lung Qualified Code(s): J18.9 - Pneumonia, unspecified organism (2) Acute respiratory failure with hypoxia Assessment/Plan: -improving with antibiotic treatment -titrate oxygen -chest PT and mucomyst to mobilize secretions Code(s): J96.01 - ACUTE RESPIRATORY FAILURE WITH HYPOXIA (3) Stage IV malignant neoplasm of esophagus Assessment/Plan: -continue current regimen for pain control Code(s): C15.9 - MALIGNANT NEOPLASM OF ESOPHAGUS, UNSPECIFIED (4) UTI (urinary tract infection) Assessment/Plan: -urine culture showing coag negative staph -await ID evaluation Code(s): N39.0 - URINARY TRACT INFECTION, SITE NOT SPECIFIED Qualifiers: Urinary tract infection type: acute cystitis Hematuria presence: with hematuria Qualified Code(s): N30.01 - Acute cystitis with hematuria (5) Glaucoma Assessment/Plan: -continue eye drops Code(s): H40.9 - UNSPECIFIED GLAUCOMA (6) Hypothyroid Assessment/Plan: -continue synthroid Code(s): E03.9 - HYPOTHYROIDISM, UNSPECIFIED Problem List - Problems (1) Bilateral pneumonia Code(s): J18.9 - PNEUMONIA, UNSPECIFIED ORGANISM Qualifiers: Pneumonia type: due to unspecified organism Lung location: unspecified part of lung Qualified Code(s): J18.9 - Pneumonia, unspecified organism (2) Acute respiratory failure with hypoxia Code(s): J96.01 - ACUTE RESPIRATORY FAILURE WITH HYPOXIA (3) Stage IV malignant neoplasm of esophagus Code(s): C15.9 - MALIGNANT NEOPLASM OF ESOPHAGUS, UNSPECIFIED (4) UTI (urinary tract infection) Code(s): N39.0 - URINARY TRACT INFECTION, SITE NOT SPECIFIED Qualifiers: Urinary tract infection type: acute cystitis Hematuria presence: with hematuria Qualified Code(s): N30.01 - Acute cystitis with hematuria (5) Glaucoma Code(s): H40.9 - UNSPECIFIED GLAUCOMA (6) Hypothyroid Code(s): E03.9 - HYPOTHYROIDISM, UNSPECIFIED
--- NOTE | 2018-04-28 13:33 | PN ---
Progress Note (short form) - Note Progress Note: ID CONSULT DICTATED ? ASP PNEUMONIA R/O NON NEUTROPENIC SEPSIS THROMBOCYTOPENIA LACTIC ACIDOSIS METASTATIC ESOPHAGEAL CA + URINE C/S= CONTAMINANT AWAIT BC CONTINUE EMPIRIC ZOSYN
--- NOTE | 2018-04-28 15:27 | CONS ---
INFECTIOUS DISEASE CONSULTATION DATE OF CONSULTATION: DATE OF DICTATION: 04/28/2018 A 78-year-old male evaluated for pneumonia. The patient has a history of stage IV esophageal cancer. He was admitted with a 2-day history of worsening shortness of breath, cough, congestion, and decreased oral intake. A chest x-ray was performed and showed increased markings at the left base suggestive of pneumonia. The patient has had a cough productive of whitish sputum. He has difficulty expectorating. He is unable to lay flat secondary to shortness of breath. He has a history of stage IV esophageal cancer with metastases to the brain. He last received chemotherapy approximately 2 weeks ago. He denies any chest pain or shortness of breath. No reports of high-grade fever or shaking chills. He was last hospitalized here over 2 years ago. No known ill contacts. No recent travel. PAST MEDICAL HISTORY: Positive for esophageal CA with brain metastases, renal cancer, nephrolithiasis, glaucoma, diverticulosis, gastroesophageal reflux, BPH, hypothyroidism. PAST SURGICAL HISTORY: Status post permanent pacemaker and laminectomy. ALLERGIES: No known allergies. MEDICATIONS: At the present time include Tylenol, albuterol, Neurontin, Dilaudid, Synthroid, Ativan, and Zosyn. SOCIAL HISTORY: Former smoker. Lives in the community. SYSTEMS REVIEW: Neurologic: No loss of consciousness, seizure activity, or focal weakness. Cardiac: Negative chest pain or palpitations. Respiratory: As per HPI. Gastrointestinal: As per HPI. Genitourinary: Negative for urinary tract infection. LABORATORY DATA: White count 6.4 with 85% neutrophils, 6% lymphocytes, 8% monocytes; hematocrit 40.2; platelets 108. BUN 23, creatinine 0.9. Lactic acid 3.1. Urinalysis: White cells 35. Flu swab negative. Cultures pending. Urine culture: Coagulase negative staphylococcus. PHYSICAL EXAMINATION: General: He is awake. He is cachectic. He is chronically ill appearing. Vital Signs: Temperature 97.4; blood pressure 134/87; pulse 93, regular; respirations 18 per minute. HEENT: Sclerae are anicteric. Dry mucous membranes. Heart: Sounds S1, S2. Lungs: Coarse rhonchi bilaterally. Port Site, Right Chest: No erythema or tenderness. Abdomen: Soft and nontender. Extremities: Negative for edema. IMPRESSION: 1. Probable aspiration pneumonia. 2. Rule out non-neutropenic sepsis. 3. Lactic acidosis. 4. Metastatic esophageal cancer. 5. Thrombocytopenia, possibly secondary to sepsis. 6. Positive urine culture consistent with contaminant. Await cultures. Continue empiric Zosyn. Aspiration precautions. Overall prognosis is poor. Will follow. Thank you for the kind referral. CORBY WYLIE M.D. [id number]
[2018-04-28] MEDS: ALBUTEROL SO4 0.083% IH SOL 2.5 MG/3 ML VIAL.NEB. NEB SCH (20:15)
[2018-04-28] MEDS: ACETYLCYSTEINE 20% 200MG/ML 30 ML VIAL *FOR ORAL / INH USE ONLY NEB SCH (20:15)
[2018-04-28] MEDS: HEPARIN NA (PORCINE) 5,000 UNITS/ML 1ML VIAL SQ SCH (22:40)
[2018-04-28] MEDS: LATANOPROST 0.005% OPHTH SOLN 2.5ML BOTTLE OU SCH (23:35)
[2018-04-29] MEDS ORDERED: PIPERACILLIN/TAZOBACTAM 3.375 GM VIAL IVPB ONE ×3 (01:01→16:53)
[2018-04-29] MEDS ORDERED: DEXTROSE 5%-WATER - 50 ML IVPB ONE ×3 (01:01→16:54)
[2018-04-29] MEDS: PIPERACILLIN/TAZOB 3.375 GM 3.375 GM in DEXTROSE 5%-WATER - 50 ML IVPB SCH ×3 (01:05→17:32)
[2018-04-29] MEDS: GABAPENTIN 300 MG CAPSULE (FP) PO SCH ×6 (02:00→21:58)
[2018-04-29] MEDS: DEXTROSE 5%-0.45% SALINE 1,000 ML IV SCH ×2 (06:11→16:23)
[2018-04-29] MEDS: ONDANSETRON *ODT* 4 MG TABLET SL SCH ×3 (06:13→21:57)
[2018-04-29] MEDS: HEPARIN NA (PORCINE) 5,000 UNITS/ML 1ML VIAL SQ SCH ×3 (06:13→21:57)
[2018-04-29] MEDS: LEVOTHYROXINE NA 100 MCG TABLET (FP) PO SCH (06:13)
[2018-04-29] MEDS: LORazepam 0.5 MG TABLET PO SCH ×3 (06:13→21:58)
[2018-04-29] MEDS: PANTOPRAZOLE 20 MG TABLET (FP) PO SCH ×3 (06:13→21:57)
[2018-04-29 07:24] LABS: HEMATOCRIT 36.8 % (35.4-49); HEMOGLOBIN 12.5 GM/dL (11.7-16.9); MCH 33.4 pg (25.7-33.7); MEAN CELL VOLUME 98.2 fl (80-96); MEAN PLT VOLUME 9.6 fl (7.5-11.1); PLATELET COUNT 122 K/MM3 (134-434); RBC 3.75 M/mm3 (4.00-5.60); RDW 14.7 % (11.9-15.9); WHITE BLOOD COUNT 6.4 K/mm3 (4.0-10.0)
[2018-04-29] MEDS: ACETYLCYSTEINE 20% 200MG/ML 30 ML VIAL *FOR ORAL / INH USE ONLY NEB SCH ×2 (07:35→20:49)
[2018-04-29] MEDS: ALBUTEROL SO4 0.083% IH SOL 2.5 MG/3 ML VIAL.NEB. NEB SCH ×2 (07:35→20:49)
[2018-04-29 07:59] LABS: ANION GAP 7 MMOL/L (8-16); BLOOD UREA NITROGEN 19 mg/dL (7-18); CALCIUM 9.4 mg/dL (8.5-10.1); CHLORIDE 101 mmol/L (98-107); CO2 28 mmol/L (21-32); CREATININE 0.8 mg/dL (0.55-1.3); GLUCOSE,RANDOM 109 mg/dL (74-106); MAGNESIUM 2.1 mg/dL (1.8-2.4); PHOSPHOROUS 2.3 mg/dL (2.5-4.9); POTASSIUM 3.9 mmol/L (3.5-5.1); SODIUM 136 mmol/L (136-145)
[2018-04-29] MEDS: POLYETHYLENE GLYCOL 3350 119 GM BTL PO SCH (09:04)
[2018-04-29] MEDS: LACTOBACILLUS ACIDOPHILUS 1 TABLET PO SCH (09:33)
[2018-04-29] MEDS: HYDROmorphone HCL 2 MG TABLET PO SCH ×4 (09:33→21:57)
[2018-04-29] MEDS: TIMOLOL 0.5% OPHTHALMIC SOL 5 ML BOTTLE OU SCH (10:01)
--- NOTE | 2018-04-29 11:41 | CON.CARD ---
Consult Consult Specialty:: cardio - History of Present Illness Chief Complaint: respiratory distress History of Present Illness: 78 M brought by family for difficulty breathing. being seen by ID, possible aspiration pneumonia/sepsis. ekg showed atrial flutter--we were consulted pt with metastatic esophageal cancer (+ BRAIN METS) on hospice. pt and grandaughter report he has chest muscle weakness with inability to clear secretions, and chronic phlegmy chest congestion with cough for long time related to his cancer dx. however phlegm increased of late. pt states he experienced chest tightness on day of admit, not severe, and ongoing "all day" every day since. + pleuritic component (worse with cough and breathing). not positional. 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 (metastatic nodule from prostate cancer treated with radiation and resolved on recent MRI Also, pituitary tumor treated with carbogoline) Cardio/Vascular: Yes: HTN, Other (pacemaker recently inserted 2016 that his MRI safe because of persistent weakness and bradycardia) Pulmonary: Yes: Other (pneumonia an ex-smoker) Gastrointestinal: Yes: Cancer (esophagus), Other (esophageal cancer treated with surgery and chemotherapy) Renal/: Yes: BPH, Other (renal cell ca s/p nephrectomy) Psych: Yes: Anxiety Musculoskeletal: Yes: Chronic low back pain (history of lumbosacral disc surgery ), Other (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 No: Other (pituitary adenoma) - Past Surgical History Past Surgical History: Yes: Laminectomy (LS), Nephrectomy (right) - Alcohol/Substance Use Hx Alcohol Use: No History of Substance Use: reports: None - Smoking History Smoking history: Former smoker Have you smoked in the past 12 months: No Aproximately how many cigarettes per day: 20 If you are a former smoker, when did you quit?: 50 yrs ago - Social History ADL: Support Services Occupation: retired History of Recent Travel: No Home Medications - Allergies Allergies/Adverse Reactions: Allergies Allergy/AdvReac Type Severity Reaction Status Date / Time No Known Allergies Allergy Verified 11/12/15 09:04 - Home Medications Home Medications: Ambulatory Orders Bimatoprost [Lumigan] 1 drop OU HS 03/09/16 Brinzolamide/Brimonidine Tart [Simbrinza 1%-0.2% Eye Drops] 1 drop OU BID Cabergoline 0.25 mg PO WEEKLY 03/09/16 Gabapentin 300 mg PO Q4H 03/09/16 Levothyroxine [Synthroid -] 100 mcg PO DAILY 03/09/16 Omeprazole 20 mg PO TID 03/09/16 Acetaminophen [Tylenol .Regular Strength -] 650 mg PO Q4H PRN #0 tablet Bimatoprost [Lumigan] 1 drop IO HS 04/27/18 LORazepam [Ativan] 0.5 mg PO TID 04/27/18 Ondansetron [Ondansetron Odt] 8 mg SL TID 04/27/18 Timolol Maleate [Istalol] 1 ml OU HS 04/27/18 Family Disease History - Family Disease History Family Disease History: Other: Father ( at 78 of a CVA), Mother (lived to 100) Review of Systems - Review of Systems Constitutional: denies: Chills, Fever Eyes: denies: Eye Pain HENT: denies: Nasal Congestion Neck: denies: Stiffness Cardiovascular: denies: Palpitations Respiratory: denies: Orthopnea, PND Gastrointestinal: denies: Diarrhea, Rectal Bleeding Genitourinary: denies: Burning, Hematuria Musculoskeletal: denies: Muscle Pain Integumentary: denies: Rash Neurological: denies: Numbness, Seizure, Syncope Endocrine: denies: Excessive Sweating Hematology/Lymphatic: denies: Excessive Bleeding Vital Signs: Vital Signs Temperature 98.8 F 04/29/18 10:43 Pulse Rate 104 H 04/29/18 10:43 Respiratory Rate 20 04/29/18 10:43 Blood Pressure 122/77 04/29/18 10:43 O2 Sat by Pulse Oximetry (%) 97 04/28/18 20:24 Constitutional: Yes: Well Nourished, No Distress Eyes: No: Sclera Icterus HENT: No: Nasal Congestion Neck: No: Decreased ROM Respiratory: Yes: Rhonchi (loud diffusely). No: Accessory Muscle Use, Rales, Wheezes Gastrointestinal: Yes: Normal Bowel Sounds. No: Distention, Hepatomegaly, Palpable Mass, Tenderness Cardiovascular: Yes: Regular Rate and Rhythm JVD: No Carotid Bruit: No PMI: Non-Displaced Heart Sounds: Yes: S1, S2. No: Gallop Murmur: No: Systolic Murmur, Diastolic Murmur Musculoskeletal: Yes: Other (No kyphosis) Extremities: No: Cold, Cyanosis Edema: No Peripheral Pulses: 2+ Left Carotid, 2+ Right Carotid, 2+ Left Doralis Pedis, 2+ Right Dorsalis Pedis Integumentary: No: Jaundice Neurological: Yes: Alert, Oriented (x3) Psychiatric: No: Agitated - Other Data Labs, Other Data: CBC, BMP 04/29/18 06:45 04/29/18 06:45 INR, PTT INR 1.15 (0.83-1.09) H 04/27/18 11:37 Laboratory Tests 04/27/18 04/27/18 04/29/18 11:37 12:25 06:45 WBC 6.4 Hgb 12.5 Plt Count 122 L Sodium Potassium Carbon Dioxide BUN Creatinine Lactic Acid 3.1 H* Magnesium AST 24 ALT 12 L Troponin I 0.02 B-Natriuretic Peptide 3452.5 H 04/29/18 06:45 WBC Hgb Plt Count Sodium 136 Potassium 3.9 Carbon Dioxide 28 BUN 19 H Creatinine 0.8 Lactic Acid Magnesium 2.1 AST ALT Troponin I B-Natriuretic Peptide Assessment/Plan MPI 2014: no ischemia, normal EF Echo 2017: nl LV/EF. nl RV. mild AI/MR/TR ECG: atypical atrial flutter waves V1/V2 with 4:1 AV conduction, not seen in other leads. diffuse TWIs new vs 08/18/15 CXR: incr bibasilar markings, rule out early infiltrate LLL. fluid in horizontal fissure atrial flutter: -? atrial flutter waves in leads V1/V2 on admitting ECG, though suspect this is sinus with artifact, as these are not visible in other leads, in which the P waves resemble his sinus rhythm p waves from prior ekg. strip reviewed with EP who agrees sinus is more likely here. -has had brief episodes of AF on interrogation of dual-chamber PM with dr currie per office notes-AC deferred due to low burden and hi bleed risk -no significant tachycardia. would tolerate resting HR to 110s given likelihood of exacerbating orthostatic hypotension with AVN blockers -pt not a candidate for AC for CVA prevention given low life expectancy and very hi bleed risk in light of esophageal cancer metastatic to brain, on hospice resp distress, pleuritic chest pain: -BNP 3K -CXR fluid in fissure. on my review, small L effusion --new vs 03/05. no vascular congestion/cephalization appreciated. -ECG with new, deep TWIs concerning for ischemia. troponin negative on presentation (04/27). -given the chronic severe phlegmy cough with inability to expectorate secretions , worse of late, suspect this is mostly aspiration with chest wall etiology of pleuritic CP. DDx also includes: acute HFpEF (triggered by hypoxia or resp distress at home?), PE, acute myocardial ischemia (? causing CHF). -will not pursue ischemia evaluation, as pt would not be a candidate for aggressive medical or invasive tx regardless, given his very limited life expectancy from metastatic malignancy, on hospice, DNR/DNI. cannot safely give aggressive anti-platelet/AC therapies given hi risk of cerebral bleeding. -treatment will be guided only by qual of life/comfort measures, per d/w dr velez who agrees with all the details of this plan. -will repeat troponin--if elevated and ischemic heart dz suspected, will consider trial of gentle anti-anginal meds if CP persists despite treatment of chest congestion. -? chest PT, mucomyst--per primary -given new cxr findings compatible with congestion (though not diagnostic), can consider holding IVF and giving test dose lasix 20 IV 1-2 times to see if phlegm , sob improve at all. d/w'd dr de la cruz. -sat 91% in ER (lowest documented). doubt PE given new CXR changes. not a candidate for AC (or lytics) due to brain mets. check LE venous dopplers--would consider IVC filter if pt/family desire, if documented DVT -cont ABX per ID HTN: -bp controlled -same plan PPM: -routine outpt f/u with ginelli as doing h/o orthostatic hypotension: -on midodrine as outpt -same plan
--- NOTE | 2018-04-29 12:03 | PN ---
Physical Exam: SUBJECTIVE: Patient seen and examined lying in bed. present bed side. on 3l oxygen spo2 95 % no new issues overnight. reports have trouble in coughing out sputum--- already on mucinex. reports didn't have bowel movement since 3 days -- we will start him on miralex OBJECTIVE: Vital Signs Period Temp Pulse Resp BP Sys/Jhaveri Pulse Ox Last 24 Hr 97.8 F-98.8 F 95-108 18-20 118-139/71-83 97 GENERAL: The patient is awake, alert, HEAD: Normal with no signs of trauma. EYES: sclera anicteric, conjunctiva clear. No ptosis. ENT: dry mucous membranes. NECK: Trachea midline, full range of motion, supple. LUNGS: Breath sounds equal b/l, mild crackels at bases HEART: Regular rate and rhythm, S1, S2 ABDOMEN: Soft, nontender, nondistended, normoactive bowel sounds, no guarding, PSYCH: Normal mood, normal affect. SKIN: Warm, dry, Laboratory Results - last 24 hr 04/29/18 04/29/18 06:45 06:45 WBC 6.4 RBC 3.75 L Hgb 12.5 Hct 36.8 MCV 98.2 H MCH 33.4 MCHC 34.0 RDW 14.7 Plt Count 122 L MPV 9.6 Sodium 136 Potassium 3.9 Chloride 101 Carbon Dioxide 28 Anion Gap 7 L BUN 19 H Creatinine 0.8 Creat Clearance w eGFR > 60 Random Glucose 109 H Calcium 9.4 Phosphorus 2.3 L Magnesium 2.1 Active Medications Generic Name Dose Route Start Last Admin Trade Name Freq PRN Reason Stop Dose Admin Acetaminophen 650 mg 04/27/18 16:04 Tylenol - PO Q4H PRN FEVER Acetylcysteine 200 mg 04/28/18 10:00 04/29/18 07:35 Mucomyst 20 Oral / Inh Use Only* NEB 200 mg RBID LAYTON Administration Albuterol Sulfate 1 amp 04/27/18 16:04 04/28/18 13:45 Ventolin 0.083% Nebulizer Soln - NEB 1 amp Q6H PRN Administration SHORT OF BREATH/WHEEZING Albuterol Sulfate 1 amp 04/28/18 10:00 04/29/18 07:35 Ventolin 0.083% Nebulizer Soln - NEB 1 amp RBID LAYTON Administration Gabapentin 300 mg 04/27/18 18:00 04/29/18 09:33 Neurontin - PO 300 mg Q4HPO LAYTON Administration Heparin Sodium (Porcine) 5,000 unit 04/28/18 22:00 04/29/18 06:13 Heparin - SQ 5,000 unit TID LAYTON Administration Hydromorphone HCl 2 mg 04/27/18 16:03 04/29/18 09:33 Dilaudid - PO 2 mg QID LAYTON Administration Dextrose/Sodium Chloride 1,000 mls @ 42 mls/hr 04/27/18 16:15 04/29/18 06:11 D5-1/2ns - IV 42 mls/hr ASDIR LAYTON Administration Piperacillin Sod/Tazobactam 50 mls @ 100 mls/hr 04/28/18 18:00 04/29/18 09:34 Sod 3.375 gm/ Dextrose IVPB 100 mls/hr Q8H-IV LAYTON Administration Protocol Ipratropium [place] 1 amp 04/27/18 16:04 04/28/18 08:50 Atrovent 0.02% Nebulizer - NEB 1 amp Q6H PRN Administration WHEEZING Lactobacillus Acidophilus 1 tab 04/27/18 16:15 04/29/18 09:33 Bacid - PO 1 tab DAILY LAYTON Administration Latanoprost 1 drop 04/27/18 22:00 04/28/18 23:35 Xalatan 0.005% Eye Drops - OU 1 drop HS LAYTON Administration Levothyroxine Sodium 100 mcg 04/28/18 07:00 04/29/18 06:13 Synthroid - PO 100 mcg ACBK LAYTON Administration Lorazepam 0.5 mg 04/27/18 22:00 04/29/18 06:13 Ativan - PO 0.5 mg TID LAYTON Administration Pt's Own Med (Non- 0.25 mg 04/28/18 11:00 04/28/18 11:34 Formulary) ( PO 0.25 mg Cabergoline 0.5 Mg) Lazar@1000 LAYTON Administration Tablet Ondansetron HCl 8 mg 04/27/18 22:00 04/29/18 06:13 Zofran Odt - SL 8 mg TID LAYTON Administration Pantoprazole Sodium 20 mg 04/27/18 22:00 04/29/18 06:13 Protonix - PO 20 mg TID LAYTON Administration Polyethylene Glycol 17 gm 02/11/19 10:00 04/29/18 09:04 Miralax (For Daily Use) - PO 17 grams DAILY LAYTON Administration Timolol Maleate 1 drop 04/28/18 10:00 04/29/18 10:01 Timoptic 0.5% OU Not Given DAILY LAYTON ASSESSMENT/PLAN: Patient is a 78 year old male who was brought in by his family due to difficulty breathing and was found to have bilateral pneumonia. Patient admitted for further monitoring and management. Sepsis Secondary to Bilateral Pneumonia likely aspiration -Patient on initial presentation with HR >90 and RR >20. Now afebrile. Denies trouble in breathing -Chest X-Ray 04/27 shows early infiltrate -Zosyn 3.375gm IVPB Q8H as per ID -Aspiration precautions -continue Mucomyst bid - continue chest PT -02 as needed Acute Hypoxic Respiratory Failure-Resolving -Likely secondary to pneumonia -Continue IV antibiotics with Zosyn 3.375gm IVPB Q8H day 3 -Continue Albuterol Nebulizer 1amp Q6H prn and Atrovent Q6H prn -Aspiration precautions -Maintain 02 >95% Stage IV Esophageal Cancer -Patient currently on Hospice -Continue Gabapentin 300mg Q4H, Dilaudid 2mg QID, Ativan 0.5mg TID, and Zofran 8mg TID -Patient and patient's family request that he remains on his medication regimen as they do not want him uncomfortable or in pain -Continue with Soft Diet -Supportive therapy - denies any trouble in swallowing Urinary Tract Infection -Urine cultures growing Staph coagulase -Continue IV Abx with Zosyn 3.375gm IVPB Q8H -Sensitivities pending Glaucoma -Continue home eye drops with Timoptic 1 drop ou daily and Xalatan 1 drop ou HS Hypothyroidism -Synthroid 100mcg daily Pituitary Adenoma -Continue home medication Cabergoline 0.25mg every sunday F/E/N -D5-1/2 NS @42mls/hr -Hypophosphatemia. Replete and repeat -Soft diet Prophylaxis -High risk. -Protonix 20mg TID for GI. Disposition -DNR/DNI -Continue IV abx for Pneumonia Visit type - Emergency Visit Emergency Visit: Yes ED Registration Date: 04/27/18 Care time: The patient presented to the Emergency Department on the above date and was hospitalized for further evaluation of their emergent condition. - New Patient This patient is new to me today: Yes Date on this admission: 04/30/18 - Critical Care Critical Care patient: No
[2018-04-29] MEDS ORDERED: NAPH,MB-DB/K PH,MBDB POWDER PACKET PO ONE (12:14)
--- NOTE | 2018-04-29 17:30 | PN ---
Teaching Attending Note Name of Resident: Julito Reyes ATTENDING PHYSICIAN STATEMENT I saw and evaluated the patient. I reviewed the resident's note and discussed the case with the resident. I agree with the resident's findings and plan as documented. SUBJECTIVE: Unable to obtain secondary to patient sleeping. Family at bedside and saying patient appears better, however still with difficulty clearing secretions OBJECTIVE: Last Vital Signs Temp Pulse Resp BP Pulse Ox 36.8 C 97 H 20 147/85 97 04/29/18 15:28 04/29/18 15:28 04/29/18 15:28 04/29/18 15:28 04/29/18 09:00 Gen: nad, thin Pulm: ronchi bilaterally CV: rrr w/o m/r/g Abd: +bs, s/nt/nd Ext: no c/c/e CBC, BMP 04/29/18 06:45 04/29/18 06:45 ASSESSMENT AND PLAN: (1) Bilateral pneumonia Assessment/Plan: -appreciate ID assistance -continue zosyn -improving Code(s): J18.9 - PNEUMONIA, UNSPECIFIED ORGANISM Qualifiers: Pneumonia type: due to unspecified organism Lung location: unspecified part of lung Qualified Code(s): J18.9 - Pneumonia, unspecified organism (2) Acute respiratory failure with hypoxia Assessment/Plan: -improving with antibiotic treatment -titrate oxygen -chest PT and mucomyst to mobilize secretions Code(s): J96.01 - ACUTE RESPIRATORY FAILURE WITH HYPOXIA (3) Stage IV malignant neoplasm of esophagus Assessment/Plan: -continue current regimen for pain control Code(s): C15.9 - MALIGNANT NEOPLASM OF ESOPHAGUS, UNSPECIFIED (4) UTI (urinary tract infection) Assessment/Plan: -continue zosyn Code(s): N39.0 - URINARY TRACT INFECTION, SITE NOT SPECIFIED Qualifiers: Urinary tract infection type: acute cystitis Hematuria presence: with hematuria Qualified Code(s): N30.01 - Acute cystitis with hematuria (5) Glaucoma Assessment/Plan: -continue eye drops Code(s): H40.9 - UNSPECIFIED GLAUCOMA (6) Hypothyroid Assessment/Plan: -continue synthroid Code(s): E03.9 - HYPOTHYROIDISM, UNSPECIFIED Case d/w Dr Sy and Dr Melgar. There was concern for possible atrial fibrillation. Anticoagulation was discussed and considering patient's age and comorbidities it was felt that it would be better to not anticoagulate. Also with the increased secretions and difficulty clearing, will stop IVF. Will hold on lasix but if does not clear will consider lasix. Venous duplex dopplers were ordered, however in discussion with family decided to forgo this as they would not want anticoagulation or IVC filter if positive. Further clarification of goals of care will be explored as patient may benefit from [place] over home hospice. Problem List - Problems (1) Bilateral pneumonia Code(s): J18.9 - PNEUMONIA, UNSPECIFIED ORGANISM Qualifiers: Pneumonia type: due to unspecified organism Lung location: unspecified part of lung Qualified Code(s): J18.9 - Pneumonia, unspecified organism (2) Acute respiratory failure with hypoxia Code(s): J96.01 - ACUTE RESPIRATORY FAILURE WITH HYPOXIA (3) Stage IV malignant neoplasm of esophagus Code(s): C15.9 - MALIGNANT NEOPLASM OF ESOPHAGUS, UNSPECIFIED (4) UTI (urinary tract infection) Code(s): N39.0 - URINARY TRACT INFECTION, SITE NOT SPECIFIED Qualifiers: Urinary tract infection type: acute cystitis Hematuria presence: with hematuria Qualified Code(s): N30.01 - Acute cystitis with hematuria (5) Glaucoma Code(s): H40.9 - UNSPECIFIED GLAUCOMA (6) Hypothyroid Code(s): E03.9 - HYPOTHYROIDISM, UNSPECIFIED
[2018-04-29] MEDS: IPRATROPIUM BR 0.02% 0.5 MG/2.5 ML VIAL.NEB. NEB PRN (17:55)
[2018-04-29] MEDS: ALBUTEROL SO4 0.083% IH SOL 2.5 MG/3 ML VIAL.NEB. NEB PRN (17:55)
[2018-04-29] MEDS: LATANOPROST 0.005% OPHTH SOLN 2.5ML BOTTLE OU SCH (21:58)
[2018-04-30] MEDS ORDERED: PIPERACILLIN/TAZOBACTAM 3.375 GM VIAL IVPB ONE ×3 (00:55→17:21)
[2018-04-30] MEDS ORDERED: DEXTROSE 5%-WATER - 50 ML IVPB ONE ×3 (00:56→17:21)
[2018-04-30] MEDS: PIPERACILLIN/TAZOB 3.375 GM 3.375 GM in DEXTROSE 5%-WATER - 50 ML IVPB SCH ×3 (02:20→17:29)
[2018-04-30] MEDS: GABAPENTIN 300 MG CAPSULE (FP) PO SCH ×7 (02:20→22:45)
[2018-04-30] MEDS: ONDANSETRON *ODT* 4 MG TABLET SL SCH ×4 (06:25→21:59)
[2018-04-30] MEDS: PANTOPRAZOLE 20 MG TABLET (FP) PO SCH ×4 (06:25→21:59)
[2018-04-30] MEDS: LEVOTHYROXINE NA 100 MCG TABLET (FP) PO SCH ×2 (06:25→06:52)
[2018-04-30] MEDS: LORazepam 0.5 MG TABLET PO SCH ×4 (06:26→21:59)
[2018-04-30] MEDS: HEPARIN NA (PORCINE) 5,000 UNITS/ML 1ML VIAL SQ SCH ×3 (06:26→22:45)
[2018-04-30] MEDS: IPRATROPIUM BR 0.02% 0.5 MG/2.5 ML VIAL.NEB. NEB PRN (06:29)
[2018-04-30] MEDS: ALBUTEROL SO4 0.083% IH SOL 2.5 MG/3 ML VIAL.NEB. NEB PRN ×2 (06:30→08:40)
[2018-04-30 07:24] LABS: BASO % 0.2 % (0-2.0); HEMATOCRIT 38.2 % (35.4-49); HEMOGLOBIN 13.2 GM/dL (11.7-16.9); LYMPH % 3.1 % (8-40); MCH 33.9 pg (25.7-33.7); MCHC 34.7 g/dl (32.0-35.9); MEAN CELL VOLUME 97.6 fl (80-96); MEAN PLT VOLUME 9.6 fl (7.5-11.1); MONO % 8.5 % (3.8-10.2); NEUT % 88.2 % (42.8-82.8); PLATELET COUNT 145 K/MM3 (134-434); RBC 3.91 M/mm3 (4.00-5.60); WHITE BLOOD COUNT 8.7 K/mm3 (4.0-10.0)
[2018-04-30 07:38] LABS: ANION GAP 8 MMOL/L (8-16); BLOOD UREA NITROGEN 15 mg/dL (7-18); CALCIUM 9.2 mg/dL (8.5-10.1); CHLORIDE 99 mmol/L (98-107); CO2 29 mmol/L (21-32); CREATININE 0.8 mg/dL (0.55-1.3); GLUCOSE,RANDOM 102 mg/dL (74-106); POTASSIUM 3.7 mmol/L (3.5-5.1); SODIUM 136 mmol/L (136-145)
[2018-04-30] MEDS: ALBUTEROL SO4 0.083% IH SOL 2.5 MG/3 ML VIAL.NEB. NEB SCH ×2 (08:40→20:50)
--- NOTE | 2018-04-30 09:32 | PN ---
Physical Exam: SUBJECTIVE: Patient seen and examined repots he is congested whole night and is unable to cough out sputum. Bedside suction done which gave some relief to patient but still not comfortable. Discussed with regarding general condition of patient. understands that his health his declining and it might decline more. still on nasal canula 3 l [id number] 94 OBJECTIVE: Vital Signs Period Temp Pulse Resp BP Sys/Jhaveri Pulse Ox Last 24 Hr 98 F-98.8 F 69-110 20-20 122-152/69-95 98 GENERAL: The patient is awake, alert, cachectic HEAD: Normal with no signs of trauma. EYES: sclera anicteric, conjunctiva clear. No ptosis. ENT: dry mucous membranes. NECK: Trachea midline, full range of motion, supple. LUNGS: increase in crackels on right side all over right side. , HEART: Regular rate and rhythm, S1, S2 ABDOMEN: Soft, nontender, nondistended, normoactive bowel sounds, no guarding, PSYCH: Normal mood, normal affect. SKIN: Warm, dry, Laboratory Results - last 24 hr 04/29/18 04/30/18 04/30/18 12:55 06:45 06:45 WBC 8.7 RBC 3.91 L Hgb 13.2 Hct 38.2 MCV 97.6 H MCH 33.9 H MCHC 34.7 RDW 14.0 Plt Count 145 MPV 9.6 Absolute Neuts (auto) 7.7 Neutrophils % 88.2 H Lymphocytes % 3.1 L D Monocytes % 8.5 Eosinophils % 0.0 Basophils % 0.2 Nucleated RBC % 0 Sodium 136 Potassium 3.7 Chloride 99 Carbon Dioxide 29 Anion Gap 8 BUN 15 Creatinine 0.8 Creat Clearance w eGFR > 60 Random Glucose 102 Calcium 9.2 Creatine Kinase 93 Troponin I 0.02 Active Medications Generic Name Dose Route Start Last Admin Trade Name Freq PRN Reason Stop Dose Admin Acetaminophen 650 mg 04/27/18 16:04 Tylenol - PO Q4H PRN FEVER Acetylcysteine 200 mg 04/30/18 08:29 Mucomyst 20 Oral / Inh Use Only* NEB RBID [facility] Albuterol Sulfate 1 amp 04/27/18 16:04 04/30/18 06:30 Ventolin 0.083% Nebulizer Soln - NEB 1 amp Q6H PRN Administration SHORT OF BREATH/WHEEZING Albuterol Sulfate 1 amp 04/28/18 10:00 04/29/18 20:49 Ventolin 0.083% Nebulizer Soln - NEB 1 amp RBID [facility] Administration Gabapentin 300 mg 04/27/18 18:00 04/30/18 06:53 Neurontin - PO Not Given Q4HPO [facility] Heparin Sodium (Porcine) 5,000 unit 04/28/18 22:00 04/30/18 06:26 Heparin - SQ 5,000 unit TID [facility] Administration Hydromorphone HCl 2 mg 04/27/18 16:03 04/29/18 21:57 Dilaudid - PO 2 mg QID [facility] Administration Piperacillin Sod/Tazobactam 50 mls @ 100 mls/hr 04/28/18 18:00 04/30/18 02:20 Sod 3.375 gm/ Dextrose IVPB 100 mls/hr Q8H-IV [facility] Administration Protocol Ipratropium [place] 1 amp 04/27/18 16:04 04/30/18 06:29 Atrovent 0.02% Nebulizer - NEB 1 amp Q6H PRN Administration WHEEZING Lactobacillus Acidophilus 1 tab 04/27/18 16:15 04/29/18 09:33 Bacid - PO 1 tab DAILY [facility] Administration Latanoprost 1 drop 04/27/18 22:00 04/29/18 21:58 Xalatan 0.005% Eye Drops - OU 1 drop HS [facility] Administration Levothyroxine Sodium 100 mcg 04/28/18 07:00 04/30/18 06:52 Synthroid - PO Not Given ACBK [facility] Lorazepam 0.5 mg 04/27/18 22:00 04/30/18 07:05 Ativan - PO Not Given TID [facility] Pt's Own Med (Non- 0.25 mg 04/28/18 11:00 04/28/18 11:34 Formulary) ( PO 0.25 mg Cabergoline 0.5 Mg) Lazar@1000 [facility] Administration Tablet Ondansetron HCl 8 mg 04/27/18 22:00 04/30/18 06:52 Zofran Odt - SL Not Given TID [facility] Pantoprazole Sodium 20 mg 04/27/18 22:00 04/30/18 06:53 Protonix - PO Not Given TID [facility] Polyethylene Glycol 17 gm 04/29/18 10:00 04/29/18 09:04 Miralax (For Daily Use) - PO 17 grams DAILY [facility] Administration Timolol Maleate 1 drop 04/28/18 10:00 04/29/18 10:01 Timoptic 0.5% OU Not Given DAILY [facility] ASSESSMENT/PLAN:ASSESSMENT/PLAN: Patient is a 78 year old male who was brought in by his family due to difficulty breathing and was found to have bilateral pneumonia. Patient admitted for further monitoring and management. Pneumonia: likely aspiration. -Chest X-Ray 04/30shows infiltrate on right upper lobe -Zosyn 3.375gm IVPB Q8H as per ID -Aspiration precautions -continue Mucomyst bid - continue chest PT -02 as needed - repeated suction. Acute Hypoxic Respiratory Failure-Resolving -Likely secondary to pneumonia -Continue IV antibiotics with Zosyn 3.375gm IVPB Q8H day 3 started on 04/28/18 -Continue Albuterol Nebulizer 1amp Q6H prn and Atrovent Q6H prn -Aspiration precautions -Maintain 02 >95% - continue mucomyst - repeated suction - we will start him on scopolamin patch Stage IV Esophageal Cancer -Patient currently on Hospice -Continue Gabapentin 300mg Q4H, Dilaudid 2mg QID, Ativan 0.5mg TID, and Zofran 8mg TID -Patient and patient's family request that he remains on his medication regimen as they do not want him uncomfortable or in pain -Continue with Soft Diet -Supportive therapy - denies any trouble in swallowing Urinary Tract Infection -Urine cultures growing Staph coagulase -Continue IV Abx with Zosyn 3.375gm IVPB Q8H -Sensitivities pending Glaucoma -Continue home eye drops with Timoptic 1 drop ou daily and Xalatan 1 drop ou HS Hypothyroidism -Synthroid 100mcg daily Pituitary Adenoma -Continue home medication Cabergoline 0.25mg every sunday F/E/N -D5-1/2 NS @42mls/hr -Hypophosphatemia. Replete and repeat -Soft diet Prophylaxis -High risk. -Protonix 20mg TID for GI. Disposition -DNR/DNI -Continue IV abx for Pneumonia Visit type - Emergency Visit Emergency Visit: Yes ED Registration Date: 04/27/18 Care time: The patient presented to the Emergency Department on the above date and was hospitalized for further evaluation of their emergent condition. - New Patient This patient is new to me today: No - Critical Care Critical Care patient: No
[2018-04-30] MEDS: SCOPOLAMINE HYDROBROMIDE 1 PATCH PATCH.TD72 TD SCH (10:04)
[2018-04-30] MEDS: HYDROmorphone HCL 2 MG TABLET PO SCH (10:05)
[2018-04-30] MEDS ORDERED: HYDROmorphone HCl 2 MG/ML VIAL IVPB ONE (10:52)
--- NOTE | 2018-04-30 11:01 | PN ---
Progress Note (short form) - Note Progress Note: Patient in respiratory difficulty; will try dose of dilaudid .5 mg IVPB; then decide on IV drip. Patient is sleeping peacefully with improved respirations. No program for IV dilaudid drip so I ordered MS IV Drip 1mg/hr with instructions on titration. Deja aware and in the room.
[2018-04-30] MEDS: LACTOBACILLUS ACIDOPHILUS 1 TABLET PO SCH (11:08)
[2018-04-30] MEDS: POLYETHYLENE GLYCOL 3350 119 GM BTL PO SCH (11:08)
[2018-04-30] MEDS: TIMOLOL 0.5% OPHTHALMIC SOL 5 ML BOTTLE OU SCH (11:09)
--- NOTE | 2018-04-30 11:33 | CONSULT ---
Admitting History and Physical - Primary Care Physician PCP: Prem Sung - Admission History of Present Illness: Mr Machuca is a 78 year old male who was brought in by his family secondary to difficulty breathing. Patient has a history of metastatic esophageal cancer and is on hospice. Over the past 2-3 days they noted that he was eating and drinking less and he was having more difficulty breathing. Per Palliative care note-Mrs Machuca expressing that Pierre was home for 3 days on hospice when this happened. They revoked the hospice and came to hospital as she had no means or medications to manage his symptoms in the house. She is aware he has PNA and they are unsure if it is aspiration. We discussed safest food to eat and she stated that his appetite is very poor. 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 (metastatic nodule from prostate cancer treated with radiation and resolved on recent MRI Also, pituitary tumor treated with carbogoline) Cardiovascular: Yes: HTN, Other (pacemaker recently inserted 2016 that his MRI safe because of persistent weakness and bradycardia) Pulmonary: Yes: Other (pneumonia an ex-smoker) Gastrointestinal: Yes: Cancer (esophagus), Other (esophageal cancer treated with surgery and chemotherapy) Renal/: Yes: BPH, Other (renal cell ca s/p nephrectomy) Heme/Onc: Yes: Cancer (esophageal ca), Current Chemotherapy (chemotherapy every 3 weeks at the [facility] with [id number]) Psych: Yes: Anxiety Musculoskeletal: Yes: Chronic low back pain (history of lumbosacral disc surgery ), Other (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 No: Other (pituitary adenoma) - Past Surgical History Past Surgical History: Yes: Laminectomy (LS), Nephrectomy (right) - Advance Directives Advance Directives: Yes: DNR - Smoking History Smoking history: Former smoker Have you smoked in the past 12 months: No Aproximately how many cigarettes per day: 20 If you are a former smoker, when did you quit?: 50 yrs ago - Alcohol/Substance Use Hx Alcohol Use: No History of Substance Use: reports: None - Social History ADL: Support Services Occupation: retired History of Recent Travel: No History - Admission Reason For Visit: STAGE IV MALIGNANT NEOPLASM OF ESOPHAGUS,PNEUMONIA - Diagnostics X-ray: Report Reviewed - General Mental Status: Alert and Oriented, Awake and Alert, Able to Follow Commands Attention: Mild Impairment Ability to Follow Directions: Good Head/Neck Control: Good - Hearing Hearing: Normal Speech Evaluation - Communication Primary Language: M[place] Communication: Yes: Simple Responses Oral Expression Ability: Yes: Mild Impairment, Moderate Impairment - Speech Production Able to Make Needs Known: Yes: Mildly Impaired, Moderately Impaired Intelligibility: Yes: Mildly Impaired, Moderately Impaired - Speech Characteristics Voice Loudness: Moderately Soft/Quiet Voice Phonatory-based Quality: Yes: Breathy, Weak, Dysphonia, Vocal Wetness Speech Pattern: Impaired Speech Clarity: < 75% Nasal Resonance: Normal Articulation: Yes: Precise Voice, Other Observations: Yes: Inadequate Breath Support (SOB with difficulty speaking, hypophonic, breathy since adfmission per pt's .) - Language/Auditory Comprehension Follows: Yes: 1 Stage Simple Commands Observation: Able to respond to yes/no queries: Yes, Yes/No Confusion: No - Language/Verbal Expression Functional Communication Status: Yes: Mildly Impaired - Swallow Evaluation/Bedside Assessment Current Nutritional Intake: NPO, Regular ( Had hash browns this am and gatorade) Oral Secretions: Yes: WFL (Audible upper airway secretions) Dentition: Yes: Adequate Facial Symmetry at Rest: Symmetrical Jaw Position: Open at Rest (sob) Against Resistance Opening: Weak Against Resistance Closing: Weak Pucker Lips: Weak Smile: Weak Laryngeal Elevation: Impaired Laryngeal Movement: Able to Palpate, Reduced Excursion, Labored,delay initiation , Reduced Velocity Bolus Size: Small Oral Prep Time: Increased Timing of Swallow: Delayed Coughing/Throat Clear: Yes (gatorade and puree) Recommendations - Speech Evaluation, Impression/Plan Impression: SOB with difficulty speaking, hypophonic, breathy voice since admission per pt's . Suspect vocal cord dysfunction with aspiration on liquids and possibly puree as well. - Disposition Discharge to: Home with Assist - Dysphagia Impressions/Plan Swallowing Skills: Impaired Dysphagia Impressions: Severe Impairment, Suspect Aspiration *Silent aspiration: cannot be R/O at bedside Dysphagia Treatment Plan: Other (Reviewed with Dr. Sung who will discuss with Dr. Melgar re: End of life plan) Recommendations: Other (Pt appears to be aspirating,esophageal cancer,likely new onset vocal cord dysfunction with breathy voice/aspiration,sob. Pt is on hospice. He would probably be more comfortable and less sob if NPO. If PO is desired and further w/u is indicated to determine if pt can tolerate po intake, MBS may be beneficial.) - Recommendations Diet Consistency: NPO, Other (NPO for now if SOB. MBS? Safest is puree/honey but may be aspirating on that as well.) Liquids: NPO
--- NOTE | 2018-04-30 12:24 | PN ---
Teaching Attending Note Name of Resident: Julito Reyes ATTENDING PHYSICIAN STATEMENT I saw and evaluated the patient. I reviewed the resident's note and discussed the case with the resident. I agree with the resident's findings and plan as documented. SUBJECTIVE: Mr Machuca is without complaint but is having difficulty speaking secondary to secretions. He says he feels fine though OBJECTIVE: Last Vital Signs Temp Pulse Resp BP Pulse Ox 36.6 C 110 H 20 138/95 97 04/30/18 09:02 04/30/18 09:02 04/30/18 09:02 04/30/18 09:02 04/30/18 09:00 Gen: nad Pulm: diffuse loud ronchi in all lung carson CV: rrr w/o m/r/g Abd: +bs, s/nt/nd Ext: no c/c/e CBC, BMP 04/30/18 06:45 04/30/18 06:45 ASSESSMENT AND PLAN: (1) Bilateral pneumonia Assessment/Plan: -appreciate ID assistance -continue zosyn currently Code(s): J18.9 - PNEUMONIA, UNSPECIFIED ORGANISM Qualifiers: Pneumonia type: due to unspecified organism Lung location: unspecified part of lung Qualified Code(s): J18.9 - Pneumonia, unspecified organism (2) Acute respiratory failure with hypoxia Assessment/Plan: -having difficulty clearing secretions -speech therapy recommending npo -will d/w patient and family Code(s): J96.01 - ACUTE RESPIRATORY FAILURE WITH HYPOXIA (3) Stage IV malignant neoplasm of esophagus Assessment/Plan: -started on morphine gtt Code(s): C15.9 - MALIGNANT NEOPLASM OF ESOPHAGUS, UNSPECIFIED (4) UTI (urinary tract infection) Assessment/Plan: -continue zosyn Code(s): N39.0 - URINARY TRACT INFECTION, SITE NOT SPECIFIED Qualifiers: Urinary tract infection type: acute cystitis Hematuria presence: with hematuria Qualified Code(s): N30.01 - Acute cystitis with hematuria (5) Glaucoma Assessment/Plan: -continue eye drops Code(s): H40.9 - UNSPECIFIED GLAUCOMA (6) Hypothyroid Assessment/Plan: -continue synthroid at this time Code(s): E03.9 - HYPOTHYROIDISM, UNSPECIFIED Dispo -ongoing discussion with family about goals of care -now on morphine gtt -will need further discussion about simplifying medication regimen and making solely comfort measures -patient may benefit from inpatient hospice Problem List - Problems (1) Bilateral pneumonia Code(s): J18.9 - PNEUMONIA, UNSPECIFIED ORGANISM Qualifiers: Pneumonia type: due to unspecified organism Lung location: unspecified part of lung Qualified Code(s): J18.9 - Pneumonia, unspecified organism (2) Acute respiratory failure with hypoxia Code(s): J96.01 - ACUTE RESPIRATORY FAILURE WITH HYPOXIA (3) Stage IV malignant neoplasm of esophagus Code(s): C15.9 - MALIGNANT NEOPLASM OF ESOPHAGUS, UNSPECIFIED (4) UTI (urinary tract infection) Code(s): N39.0 - URINARY TRACT INFECTION, SITE NOT SPECIFIED Qualifiers: Urinary tract infection type: acute cystitis Hematuria presence: with hematuria Qualified Code(s): N30.01 - Acute cystitis with hematuria (5) Glaucoma Code(s): H40.9 - UNSPECIFIED GLAUCOMA (6) Hypothyroid Code(s): E03.9 - HYPOTHYROIDISM, UNSPECIFIED
[2018-04-30] MEDS: SODIUM CHLORIDE IV SCH (15:03)
[2018-04-30] MEDS: MORPHINE SULFATE IV SCH (15:03)
[2018-04-30] MEDS: ACETYLCYSTEINE 20% 200MG/ML 4 ML VIAL *FOR ORAL / INH USE ONLY NEB SCH (20:50)
[2018-04-30] MEDS: LATANOPROST 0.005% OPHTH SOLN 2.5ML BOTTLE OU SCH (22:44)
[2018-05-01] MEDS ORDERED: PIPERACILLIN/TAZOBACTAM 3.375 GM VIAL IVPB ONE ×4 (01:08→21:01)
[2018-05-01] MEDS ORDERED: DEXTROSE 5%-WATER - 50 ML IVPB ONE ×4 (01:08→21:01)
[2018-05-01] MEDS: PIPERACILLIN/TAZOB 3.375 GM 3.375 GM in DEXTROSE 5%-WATER - 50 ML IVPB SCH ×3 (02:18→17:42)
[2018-05-01] MEDS: GABAPENTIN 300 MG CAPSULE (FP) PO SCH ×6 (02:28→22:09)
[2018-05-01] MEDS: ONDANSETRON *ODT* 4 MG TABLET SL SCH ×3 (05:37→22:10)
[2018-05-01] MEDS: LORazepam 0.5 MG TABLET PO SCH (05:37)
[2018-05-01] MEDS: PANTOPRAZOLE 20 MG TABLET (FP) PO SCH ×3 (05:37→22:09)
[2018-05-01] MEDS: LEVOTHYROXINE NA 100 MCG TABLET (FP) PO SCH (06:02)
[2018-05-01] MEDS: HEPARIN NA (PORCINE) 5,000 UNITS/ML 1ML VIAL SQ SCH ×3 (06:02→21:59)
[2018-05-01 06:23] LABS: BASO % 0.3 % (0-2.0); HEMATOCRIT 36.1 % (35.4-49); HEMOGLOBIN 12.4 GM/dL (11.7-16.9); LYMPH % 4.7 % (8-40); MCH 33.6 pg (25.7-33.7); MCHC 34.3 g/dl (32.0-35.9); MEAN CELL VOLUME 97.8 fl (80-96); MEAN PLT VOLUME 9.1 fl (7.5-11.1); MONO % 11.4 % (3.8-10.2); NEUT % 83.6 % (42.8-82.8); PLATELET COUNT 122 K/MM3 (134-434); RBC 3.68 M/mm3 (4.00-5.60); RDW 14.5 % (11.9-15.9); WHITE BLOOD COUNT 5.3 K/mm3 (4.0-10.0)
[2018-05-01 06:45] LABS: ALBUMIN 2.3 g/dl (3.4-5.0); ALK PHOS 62 U/L (45-117); ANION GAP 6 MMOL/L (8-16); BILIRUBIN,TOTAL 0.8 mg/dL (0.2-1); BLOOD UREA NITROGEN 19 mg/dL (7-18); CALCIUM 9.6 mg/dL (8.5-10.1); CHLORIDE 100 mmol/L (98-107); CO2 30 mmol/L (21-32); CREATININE 0.8 mg/dL (0.55-1.3); GLUCOSE,RANDOM 104 mg/dL (74-106); POTASSIUM 3.8 mmol/L (3.5-5.1); SGOT/AST 18 U/L (15-37); SGPT/ALT 8 U/L (13-61); SODIUM 137 mmol/L (136-145); TOT PROT 6.2 g/dl (6.4-8.2)
[2018-05-01] MEDS ORDERED: LORazepam 0.5 MG TABLET PO SCH (06:45)
[2018-05-01] MEDS: ACETYLCYSTEINE 20% 200MG/ML 4 ML VIAL *FOR ORAL / INH USE ONLY NEB SCH ×2 (08:05→21:31)
[2018-05-01] MEDS: ALBUTEROL SO4 0.083% IH SOL 2.5 MG/3 ML VIAL.NEB. NEB SCH ×2 (08:05→21:32)
[2018-05-01] MEDS ORDERED: LORazepam 2 MG/ML SDV VIAL IVPUSH PRN (08:36)
--- NOTE | 2018-05-01 08:48 | PN ---
Progress Note (short form) - Note Progress Note: Patient less SOB but still will pain anxiety and unable to sleep last nite. I will add PRN IV ativan .25mg (D/C PO) which should be especially helpful fo nite sleep and anxiety. I would NOT order routine lab as our goal is comfort.
--- NOTE | 2018-05-01 10:15 | PN ---
Teaching Attending Note Name of Resident: Julito Reyes ATTENDING PHYSICIAN STATEMENT I saw and evaluated the patient. I reviewed the resident's note and discussed the case with the resident. I agree with the resident's findings and plan as documented with exceptions below. SUBJECTIVE: Patient seen and examined. feels tired. lethargic. wants drink, minimal co- operation, no complaints. OBJECTIVE: Vital Signs Period Temp Pulse Resp BP Sys/Jhaveri Pulse Ox Last 24 Hr 97.4 F-98.0 F 67-114 18-20 133-146/63-81 99 Intake & Output 04/28/18 04/29/18 04/30/18 05/01/18 23:59 23:59 23:59 23:59 Intake Total 1636 760 354 50 Output Total 700 250 Balance 936 510 354 50 Weight 124 lb General: sitting in chair, lethargic, Chest: poor effort, occasional rales Abdomen: soft, NT Extremities: no edema Home Medications Medication Instructions Recorded Bimatoprost [Lumigan] 1 drop OU HS 03/09/16 Brinzolamide/Brimonidine Tart 1 drop OU BID 03/09/16 [Simbrinza 1%-0.2% Eye Drops] Cabergoline 0.25 mg PO WEEKLY 03/09/16 Gabapentin 300 mg PO Q4H 03/09/16 Levothyroxine [Synthroid -] 100 mcg PO DAILY 03/09/16 Omeprazole 20 mg PO TID 03/09/16 Acetaminophen [Tylenol .Regular 650 mg PO Q4H PRN #0 tablet 03/11/16 Strength -] Bimatoprost [Lumigan] 1 drop IO HS 04/27/18 LORazepam [Ativan] 0.5 mg PO TID 04/27/18 Ondansetron [Ondansetron Odt] 8 mg SL TID 04/27/18 Timolol Maleate [Istalol] 1 ml OU HS 04/27/18 Active Medications Acetaminophen (Tylenol -) 650 mg PO Q4H PRN PRN Reason: FEVER Acetylcysteine (Mucomyst 20 Oral / Inh Use Only*) 200 mg NEB RBID [facility] Last Admin: 05/01/18 08:05 Dose: 200 mg Albuterol Sulfate (Ventolin 0.083% Nebulizer Soln -) 1 amp NEB Q6H PRN PRN Reason: SHORT OF BREATH/WHEEZING Last Admin: 04/30/18 08:40 Dose: 1 amp Albuterol Sulfate (Ventolin 0.083% Nebulizer Soln -) 1 amp NEB RBID [facility] Last Admin: 05/01/18 08:05 Dose: 1 amp Gabapentin (Neurontin -) 300 mg PO Q4HPO [facility] Last Admin: 05/01/18 06:02 Dose: Not Given Heparin Sodium (Porcine) (Heparin -) 5,000 unit SQ TID [facility] Last Admin: 05/01/18 06:02 Dose: Not Given Piperacillin Sod/Tazobactam (Sod 3.375 gm/ Dextrose) 50 mls @ 100 mls/hr IVPB Q8H-IV [facility]; Protocol Last Admin: 05/01/18 02:18 Dose: 100 mls/hr Morphine Sulfate 100 mg/ (Sodium Chloride) 100 mls @ 1 mls/hr IV TITR [facility]; Protocol Stop: 05/03/18 13:15 Last Titration: 05/01/18 06:09 Dose: 2 mg/hr, 2 mls/hr Ipratropium [place] (Atrovent 0.02% Nebulizer -) 1 amp NEB Q6H PRN PRN Reason: WHEEZING Last Admin: 04/30/18 06:29 Dose: 1 amp Lactobacillus Acidophilus (Bacid -) 1 tab PO DAILY [facility] Last Admin: 04/30/18 11:08 Dose: Not Given Latanoprost (Xalatan 0.005% Eye Drops -) 1 drop OU HS [facility] Last Admin: 04/30/18 22:44 Dose: 1 drop Levothyroxine Sodium (Synthroid -) 100 mcg PO ACBK [facility] Last Admin: 05/01/18 06:02 Dose: Not Given Lorazepam (Ativan Injection -) 0.5 mg IVPUSH BID PRN PRN Reason: ANXIETY Pt's Own Med (Non- Formulary) ( Cabergoline 0.5 Mg) Tablet 0.25 mg PO Lazar@1000 [facility] Last Admin: 04/28/18 11:34 Dose: 0.25 mg Ondansetron HCl (Zofran Odt -) 8 mg SL TID [facility] Last Admin: 05/01/18 05:37 Dose: Not Given Pantoprazole Sodium (Protonix -) 20 mg PO TID [facility] Last Admin: 05/01/18 05:37 Dose: Not Given Polyethylene Glycol (Miralax (For Daily Use) -) 17 gm PO DAILY [facility] Last Admin: 04/30/18 11:08 Dose: Not Given Scopolamine HBr (Transderm-Scop -) 1 patch TD Q72H [facility] Last Admin: 04/30/18 10:04 Dose: 1 patch Timolol Maleate (Timoptic 0.5%) 1 drop OU DAILY [facility] Last Admin: 04/30/18 11:09 Dose: Not Given Laboratory Results - last 24 hr 05/01/18 05/01/18 06:00 06:00 WBC 5.3 RBC 3.68 L Hgb 12.4 Hct 36.1 MCV 97.8 H MCH 33.6 MCHC 34.3 RDW 14.5 Plt Count 122 L MPV 9.1 Absolute Neuts (auto) 4.4 Neutrophils % 83.6 H Lymphocytes % 4.7 L D Monocytes % 11.4 H Eosinophils % 0.0 Basophils % 0.3 Nucleated RBC % 0 Sodium 137 Potassium 3.8 Chloride 100 Carbon Dioxide 30 Anion Gap 6 L BUN 19 H Creatinine 0.8 Creat Clearance w eGFR > 60 Random Glucose 104 Calcium 9.6 Total Bilirubin 0.8 AST 18 ALT 8 L Alkaline Phosphatase 62 Total Protein 6.2 L Albumin 2.3 L Microbiology 04/27/18 12:30 Blood - Peripheral Venous Blood Culture - Preliminary NO GROWTH OBTAINED AFTER 72 HOURS, INCUBATION TO CONTINUE FOR 2 DAYS. 04/27/18 12:30 Blood - Peripheral Venous Blood Culture - Preliminary NO GROWTH OBTAINED AFTER 72 HOURS, INCUBATION TO CONTINUE FOR 2 DAYS. 04/27/18 12:25 Urine - Urine Clean Catch Urine Culture - Final Staphylococcus Epidermidis ASSESSMENT AND PLAN: 78 yom with PMhx of stage IV metastatic esophageal cancer on home hospice, h/o prostate ca/pituitory tumor, s/p PPM (2016 that is MRI safe) admitted with dyspnea -Dyspnea, suspected aspiration Pneumonia in immunocompromised state -Acute hypoxic respiratory failure -Lower uncomplicated UTI vs contamination -Stage IV metastatic esophageal cancer -Pituitory tumor -s/p PPM (2016 that is MRI safe) Plan: Overall prognosis poor discussed in detail with Kandi and daughter at bedside. Explained about home hospice vs inpatient hospice. Family expressed interest in inpatient hospice, [place]. Morphine drip, titrate to comfort. Change ativan to standing. PO liquids as tolerated for comfort, family aware of the risk of aspiration and in agreement with comfort PO ava. Emperic Zosyn per ID day 4 for possible aspiration PNA/UTI, unclear benefit at the current stage. Discuss with CM about inpatient hospice/[facility]. D/c when bed available.
--- NOTE | 2018-05-01 10:37 | PN ---
Physical Exam: SUBJECTIVE: Patient seen and examined repots he is congested whole night and is unable to cough out sputum and didnt sleep whole night OBJECTIVE: Vital Signs Period Temp Pulse Resp BP Sys/Jhaveri Pulse Ox Last 24 Hr 97.4 F-98.0 F 67-114 18-20 133-146/63-81 99 GENERAL: The patient is awake, alert, cachectic HEAD: Normal with no signs of trauma. EYES: sclera anicteric, conjunctiva clear. No ptosis. ENT: dry mucous membranes. NECK: Trachea midline, full range of motion, supple. LUNGS: increase in crackels on right side all over right side. , HEART: Regular rate and rhythm, S1, S2 ABDOMEN: Soft, nontender, nondistended, normoactive bowel sounds, no guarding, PSYCH: Normal mood, normal affect. SKIN: Warm, dry, Laboratory Results - last 24 hr 05/01/18 05/01/18 06:00 06:00 WBC 5.3 RBC 3.68 L Hgb 12.4 Hct 36.1 MCV 97.8 H MCH 33.6 MCHC 34.3 RDW 14.5 Plt Count 122 L MPV 9.1 Absolute Neuts (auto) 4.4 Neutrophils % 83.6 H Lymphocytes % 4.7 L D Monocytes % 11.4 H Eosinophils % 0.0 Basophils % 0.3 Nucleated RBC % 0 Sodium 137 Potassium 3.8 Chloride 100 Carbon Dioxide 30 Anion Gap 6 L BUN 19 H Creatinine 0.8 Creat Clearance w eGFR > 60 Random Glucose 104 Calcium 9.6 Total Bilirubin 0.8 AST 18 ALT 8 L Alkaline Phosphatase 62 Total Protein 6.2 L Albumin 2.3 L Active Medications Generic Name Dose Route Start Last Admin Trade Name Freq PRN Reason Stop Dose Admin Acetaminophen 650 mg 04/27/18 16:04 Tylenol - PO Q4H PRN FEVER Acetylcysteine 200 mg 04/30/18 08:29 05/01/18 08:05 Mucomyst 20 Oral / Inh Use Only* NEB 200 mg RBID [facility] Administration Albuterol Sulfate 1 amp 04/27/18 16:04 04/30/18 08:40 Ventolin 0.083% Nebulizer Soln - NEB 1 amp Q6H PRN Administration SHORT OF BREATH/WHEEZING Albuterol Sulfate 1 amp 04/28/18 10:00 05/01/18 08:05 Ventolin 0.083% Nebulizer Soln - NEB 1 amp RBID [facility] Administration Gabapentin 300 mg 04/27/18 18:00 05/01/18 06:02 Neurontin - PO Not Given Q4HPO [facility] Heparin Sodium (Porcine) 5,000 unit 04/28/18 22:00 05/01/18 06:02 Heparin - SQ Not Given TID [facility] Piperacillin Sod/Tazobactam 50 mls @ 100 mls/hr 04/28/18 18:00 05/01/18 02:18 Sod 3.375 gm/ Dextrose IVPB 100 mls/hr Q8H-IV [facility] Administration Protocol Morphine Sulfate 100 mg/ 100 mls @ 1 mls/hr 04/30/18 13:15 05/01/18 06:09 Sodium Chloride IV 05/03/18 13:15 2 mg/hr TITR [facility] 2 mls/hr Titration Protocol 1 MG/HR Ipratropium [place] 1 amp 04/27/18 16:04 04/30/18 06:29 Atrovent 0.02% Nebulizer - NEB 1 amp Q6H PRN Administration WHEEZING Lactobacillus Acidophilus 1 tab 04/27/18 16:15 04/30/18 11:08 Bacid - PO Not Given DAILY [facility] Latanoprost 1 drop 04/27/18 22:00 04/30/18 22:44 Xalatan 0.005% Eye Drops - OU 1 drop HS [facility] Administration Levothyroxine Sodium 100 mcg 04/28/18 07:00 05/01/18 06:02 Synthroid - PO Not Given ACBK [facility] Lorazepam 0.5 mg 05/01/18 08:36 Ativan Injection - IVPUSH BID PRN ANXIETY Pt's Own Med (Non- 0.25 mg 04/28/18 11:00 04/28/18 11:34 Formulary) ( PO 0.25 mg Cabergoline 0.5 Mg) Lazar@1000 [facility] Administration Tablet Ondansetron HCl 8 mg 04/27/18 22:00 05/01/18 05:37 Zofran Odt - SL Not Given TID [facility] Pantoprazole Sodium 20 mg 04/27/18 22:00 05/01/18 05:37 Protonix - PO Not Given TID [facility] Polyethylene Glycol 17 gm 04/29/18 10:00 04/30/18 11:08 Miralax (For Daily Use) - PO Not Given DAILY [facility] Scopolamine HBr 1 patch 04/30/18 09:45 04/30/18 10:04 Transderm-Scop - TD 1 patch Q72H [facility] Administration Timolol Maleate 1 drop 04/28/18 10:00 04/30/18 11:09 Timoptic 0.5% OU Not Given DAILY [facility] ASSESSMENT/PLAN:Patient is a 78 year old male who was brought in by his family due to difficulty breathing and was found to have bilateral pneumonia. Patient admitted for further monitoring and management. Acute Hypoxic Respiratory Failure likely because of aspiration pneumonia - -Likely secondary to pneumonia -Continue IV antibiotics with Zosyn 3.375gm IVPB Q8H started on 04/28/18 -Continue Albuterol Nebulizer 1amp Q6H prn and Atrovent Q6H prn -Aspiration precautions -Maintain 02 >95% - continue mucomyst - repeated suction - we will start him on scopolamin patch Stage IV Esophageal Cancer Morphine drip/ativan for comfort. Ongoing discussion with family about goals of care with possible transition to full comfort measures and inpatient hospice. Urinary Tract Infection -Urine cultures growing Staph coagulase -Continue IV Abx with Zosyn 3.375gm IVPB Q8H Glaucoma -Continue home eye drops with Timoptic 1 drop ou daily and Xalatan 1 drop ou HS Hypothyroidism -Synthroid 100mcg daily Pituitary Adenoma -Continue home medication Cabergoline 0.25mg every sunday F/E/N -npo. because of high chances of aspiration Prophylaxis -High risk. -Protonix 20mg TID for GI. Disposition -DNR/DNI -Continue IV abx for Pneumonia Visit type - Emergency Visit Emergency Visit: Yes ED Registration Date: 04/27/18 Care time: The patient presented to the Emergency Department on the above date and was hospitalized for further evaluation of their emergent condition. - New Patient This patient is new to me today: No - Critical Care Critical Care patient: No
[2018-05-01] MEDS: LACTOBACILLUS ACIDOPHILUS 1 TABLET PO SCH (10:50)
[2018-05-01] MEDS: POLYETHYLENE GLYCOL 3350 119 GM BTL PO SCH (10:51)
[2018-05-01] MEDS: TIMOLOL 0.5% OPHTHALMIC SOL 5 ML BOTTLE OU SCH (10:52)
[2018-05-01] MEDS ORDERED: POTASSIUM PHOSPHATE 30 MM in DEXTROSE 5%-WATER - 250 ML IVPB ONE (11:00)
--- NOTE | 2018-05-01 15:33 | PN ---
Progress Note, [employer] DIRECT[employer] - Note Progress Note: Dyspnea, suspected aspiration Pneumonia in immunocompromised state Family aware and no longer giving him food/liquid/ wetting mouth for comfort. Reviewed with family risk of aspiration and likely increase in SOB. Hospice/comfort care.
[2018-05-01] MEDS: MORPHINE SULFATE IV SCH (16:16)
[2018-05-01] MEDS: SODIUM CHLORIDE IV SCH (16:16)
[2018-05-01] MEDS ORDERED: INSULIN (NOVOLOG) ASPART 100 UNITS/ML 10ML VIAL ONE (18:36)
[2018-05-01] MEDS ORDERED: PT OWN MED DRAWER 7, Y5N ONE (18:37)
[2018-05-01] MEDS: LATANOPROST 0.005% OPHTH SOLN 2.5ML BOTTLE OU SCH (22:10)
[2018-05-01] MEDS ORDERED: PORTA CATH FLUSH 10 ML IVPUSH ONE (23:00)
[2018-05-02] MEDS: GABAPENTIN 300 MG CAPSULE (FP) PO SCH ×6 (01:36→21:29)
[2018-05-02] MEDS: PIPERACILLIN/TAZOB 3.375 GM 3.375 GM in DEXTROSE 5%-WATER - 50 ML IVPB SCH ×3 (01:36→17:25)
[2018-05-02] MEDS: ONDANSETRON *ODT* 4 MG TABLET SL SCH ×3 (06:33→21:29)
[2018-05-02] MEDS: HEPARIN NA (PORCINE) 5,000 UNITS/ML 1ML VIAL SQ SCH ×3 (06:33→21:29)
[2018-05-02] MEDS: PANTOPRAZOLE 20 MG TABLET (FP) PO SCH ×3 (06:33→21:29)
[2018-05-02] MEDS: LEVOTHYROXINE NA 100 MCG TABLET (FP) PO SCH (06:34)
[2018-05-02] MEDS: ACETYLCYSTEINE 20% 200MG/ML 4 ML VIAL *FOR ORAL / INH USE ONLY NEB SCH ×2 (07:20→20:21)
[2018-05-02] MEDS: ALBUTEROL SO4 0.083% IH SOL 2.5 MG/3 ML VIAL.NEB. NEB SCH ×2 (07:20→20:21)
--- NOTE | 2018-05-02 09:00 | PN ---
Progress Note (short form) - Note Progress Note: Hospitalist to document today. Breathing more labored. Would D/C most oral meds. Inpatient hospice.
[2018-05-02] MEDS: LACTOBACILLUS ACIDOPHILUS 1 TABLET PO SCH (10:49)
[2018-05-02] MEDS: TIMOLOL 0.5% OPHTHALMIC SOL 5 ML BOTTLE OU SCH (10:49)
[2018-05-02] MEDS: POLYETHYLENE GLYCOL 3350 119 GM BTL PO SCH (10:49)
--- NOTE | 2018-05-02 10:54 | PN ---
Teaching Attending Note Name of Resident: Julito Reyes ATTENDING PHYSICIAN STATEMENT I saw and evaluated the patient. I reviewed the resident's note and discussed the case with the resident. I agree with the resident's findings and plan as documented with exceptions below. SUBJECTIVE: patient seen and examined, lethargic, tachypneic, minimal responsive. at bedside. OBJECTIVE: Vital Signs Period Temp Pulse Resp BP Sys/Jhaveri Pulse Ox Last 24 Hr 97.4 F-97.9 F 100-121 18-21 145-147/78-88 93 Intake & Output 04/29/18 04/30/18 05/01/18 05/02/18 23:59 23:59 23:59 23:59 Intake Total 760 354 86 Output Total 250 Balance 510 354 86 Weight 124 lb General: lying in bed, lethargic tachypneic, minimally responsive chest: poor effort Abdomen:soft Extremities: no edema Home Medications Medication Instructions Recorded Bimatoprost [Lumigan] 1 drop OU HS 03/09/16 Brinzolamide/Brimonidine Tart 1 drop OU BID 03/09/16 [Simbrinza 1%-0.2% Eye Drops] Cabergoline 0.25 mg PO WEEKLY 03/09/16 Gabapentin 300 mg PO Q4H 03/09/16 Levothyroxine [Synthroid -] 100 mcg PO DAILY 03/09/16 Omeprazole 20 mg PO TID 03/09/16 Acetaminophen [Tylenol .Regular 650 mg PO Q4H PRN #0 tablet 03/11/16 Strength -] Bimatoprost [Lumigan] 1 drop IO HS 04/27/18 LORazepam [Ativan] 0.5 mg PO TID 04/27/18 Ondansetron [Ondansetron Odt] 8 mg SL TID 04/27/18 Timolol Maleate [Istalol] 1 ml OU HS 04/27/18 Active Medications Acetaminophen (Tylenol -) 650 mg PO Q4H PRN PRN Reason: FEVER Acetylcysteine (Mucomyst 20 Oral / Inh Use Only*) 200 mg NEB RBID [facility] Last Admin: 05/02/18 07:20 Dose: Not Given Albuterol Sulfate (Ventolin 0.083% Nebulizer Soln -) 1 amp NEB Q6H PRN PRN Reason: SHORT OF BREATH/WHEEZING Last Admin: 04/30/18 08:40 Dose: 1 amp Albuterol Sulfate (Ventolin 0.083% Nebulizer Soln -) 1 amp NEB RBID [facility] Last Admin: 05/02/18 07:20 Dose: 1 amp Gabapentin (Neurontin -) 300 mg PO Q4HPO [facility] Last Admin: 05/02/18 10:49 Dose: Not Given Heparin Sodium (Porcine) (Heparin -) 5,000 unit SQ TID [facility] Last Admin: 05/02/18 06:33 Dose: Not Given Piperacillin Sod/Tazobactam (Sod 3.375 gm/ Dextrose) 50 mls @ 100 mls/hr IVPB Q8H-IV [facility]; Protocol Last Admin: 05/02/18 10:49 Dose: Not Given Morphine Sulfate 100 mg/ (Sodium Chloride) 100 mls @ 1 mls/hr IV TITR [facility]; Protocol Stop: 05/03/18 13:15 Last Titration: 05/02/18 09:05 Dose: 2 mg/hr, 2 mls/hr Ipratropium [place] (Atrovent 0.02% Nebulizer -) 1 amp NEB Q6H PRN PRN Reason: WHEEZING Last Admin: 04/30/18 06:29 Dose: 1 amp Lactobacillus Acidophilus (Bacid -) 1 tab PO DAILY [facility] Last Admin: 05/02/18 10:49 Dose: Not Given Latanoprost (Xalatan 0.005% Eye Drops -) 1 drop OU HS [facility] Last Admin: 05/01/18 22:10 Dose: Not Given Levothyroxine Sodium (Synthroid -) 100 mcg PO ACBK [facility] Last Admin: 05/02/18 06:34 Dose: Not Given Lorazepam (Ativan Injection -) 0.5 mg IVPUSH BID PRN PRN Reason: ANXIETY Pt's Own Med (Non- Formulary) ( Cabergoline 0.5 Mg) Tablet 0.25 mg PO Lazar@1000 [facility] Last Admin: 04/28/18 11:34 Dose: 0.25 mg Ondansetron HCl (Zofran Odt -) 8 mg SL TID [facility] Last Admin: 05/02/18 06:33 Dose: Not Given Pantoprazole Sodium (Protonix -) 20 mg PO TID [facility] Last Admin: 05/02/18 06:33 Dose: Not Given Polyethylene Glycol (Miralax (For Daily Use) -) 17 gm PO DAILY [facility] Last Admin: 05/02/18 10:49 Dose: Not Given Scopolamine HBr (Transderm-Scop -) 1 patch TD Q72H [facility] Last Admin: 04/30/18 10:04 Dose: 1 patch Timolol Maleate (Timoptic 0.5%) 1 drop OU DAILY [facility] Last Admin: 05/02/18 10:49 Dose: Not Given ASSESSMENT AND PLAN: 78 yom with PMhx of stage IV metastatic esophageal cancer on home hospice, h/o prostate ca/pituitory tumor, 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 at bedside. Morphine drip, titrate to comfort, ativan standing. Poor prognosis. Comfort measures Discussed with CM and .
--- NOTE | 2018-05-02 15:38 | PN ---
Physical Exam: SUBJECTIVE: Patient seen and examined lethargic mininmal responsive on morphine drip OBJECTIVE: Vital Signs Period Temp Pulse Resp BP Sys/Jhaveri Pulse Ox Last 24 Hr 97.4 F-97.9 F 105-121 12-20 145-148/78-90 93-94 GENERAL: The patient is awake, alert, cachectic HEAD: Normal with no signs of trauma. EYES: sclera anicteric, conjunctiva clear. No ptosis. ENT: dry mucous membranes. NECK: Trachea midline, full range of motion, supple. LUNGS: increase in crackels on right side all over right side. , HEART: Regular rate and rhythm, S1, S2 ABDOMEN: Soft, nontender, nondistended, normoactive bowel sounds, no guarding, PSYCH: Normal mood, normal affect. SKIN: Warm, dry, Active Medications Generic Name Dose Route Start Last Admin Trade Name Freq PRN Reason Stop Dose Admin Acetaminophen 650 mg 04/27/18 16:04 Tylenol - PO Q4H PRN FEVER Acetylcysteine 200 mg 04/30/18 08:29 05/02/18 07:20 Mucomyst 20 Oral / Inh Use Only* NEB Not Given RBID [facility] Albuterol Sulfate 1 amp 04/27/18 16:04 04/30/18 08:40 Ventolin 0.083% Nebulizer Soln - NEB 1 amp Q6H PRN Administration SHORT OF BREATH/WHEEZING Albuterol Sulfate 1 amp 04/28/18 10:00 05/02/18 07:20 Ventolin 0.083% Nebulizer Soln - NEB 1 amp RBID [facility] Administration Gabapentin 300 mg 04/27/18 18:00 05/02/18 14:10 Neurontin - PO Not Given Q4HPO [facility] Heparin Sodium (Porcine) 5,000 unit 04/28/18 22:00 05/02/18 14:10 Heparin - SQ Not Given TID [facility] Piperacillin Sod/Tazobactam 50 mls @ 100 mls/hr 04/28/18 18:00 05/02/18 10:49 Sod 3.375 gm/ Dextrose IVPB Not Given Q8H-IV [facility] Protocol Morphine Sulfate 100 mg/ 100 mls @ 1 mls/hr 04/30/18 13:15 05/02/18 09:05 Sodium Chloride IV 05/03/18 13:15 2 mg/hr TITR [place] 2 mls/hr Titration Protocol 1 MG/HR Ipratropium [place] 1 amp 04/27/18 16:04 04/30/18 06:29 Atrovent 0.02% Nebulizer - NEB 1 amp Q6H PRN Administration WHEEZING Lactobacillus Acidophilus 1 tab 04/27/18 16:15 05/02/18 10:49 Bacid - PO Not Given DAILY [facility] Latanoprost 1 drop 04/27/18 22:00 05/01/18 22:10 Xalatan 0.005% Eye Drops - OU Not Given HS [facility] Levothyroxine Sodium 100 mcg 04/28/18 07:00 05/02/18 06:34 Synthroid - PO Not Given ACBK [facility] Lorazepam 0.5 mg 05/01/18 08:36 Ativan Injection - IVPUSH BID PRN ANXIETY Pt's Own Med (Non- 0.25 mg 04/28/18 11:00 04/28/18 11:34 Formulary) ( PO 0.25 mg Cabergoline 0.5 Mg) Lazar@1000 [facility] Administration Tablet Ondansetron HCl 8 mg 04/27/18 22:00 05/02/18 14:10 Zofran Odt - SL Not Given TID [facility] Pantoprazole Sodium 20 mg 04/27/18 22:00 05/02/18 14:10 Protonix - PO Not Given TID [facility] Polyethylene Glycol 17 gm 04/29/18 10:00 05/02/18 10:49 Miralax (For Daily Use) - PO Not Given DAILY [facility] Scopolamine HBr 1 patch 04/30/18 09:45 04/30/18 10:04 Transderm-Scop - TD 1 patch Q72H [facility] Administration Timolol Maleate 1 drop 04/28/18 10:00 05/02/18 10:49 Timoptic 0.5% OU Not Given DAILY [facility] ASSESSMENT/PLAN:Patient is a 78 year old male who was brought in by his family due to difficulty breathing and was found to have bilateral pneumonia. Patient admitted for further monitoring and management. 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 Poor prognosis. Comfort measures palliative care team on case no labs Visit type - Emergency Visit Emergency Visit: Yes ED Registration Date: 04/27/18 Care time: The patient presented to the Emergency Department on the above date and was hospitalized for further evaluation of their emergent condition. - New Patient This patient is new to me today: No - Critical Care Critical Care patient: No
[2018-05-02] MEDS: SODIUM CHLORIDE IV SCH (18:36)
[2018-05-02] MEDS: MORPHINE SULFATE IV SCH (18:36)
[2018-05-02] MEDS ORDERED: INSULIN (NOVOLOG) ASPART 100 UNITS/ML 10ML VIAL ONE (21:04)
[2018-05-02] MEDS: LATANOPROST 0.005% OPHTH SOLN 2.5ML BOTTLE OU SCH (21:29)
[2018-05-02] MEDS ORDERED: PORTA CATH FLUSH 10 ML IVPUSH ONE (22:16)
[2018-05-03] MEDS ORDERED: DEXTROSE 5%-WATER - 50 ML IVPB ONE (02:58)
[2018-05-03] MEDS ORDERED: PIPERACILLIN/TAZOBACTAM 3.375 GM VIAL IVPB ONE (02:58)
[2018-05-03] MEDS: PIPERACILLIN/TAZOB 3.375 GM 3.375 GM in DEXTROSE 5%-WATER - 50 ML IVPB SCH ×2 (03:21→09:40)
[2018-05-03] MEDS: GABAPENTIN 300 MG CAPSULE (FP) PO SCH ×3 (03:21→09:40)
[2018-05-03] MEDS: HEPARIN NA (PORCINE) 5,000 UNITS/ML 1ML VIAL SQ SCH (05:17)
[2018-05-03] MEDS: PANTOPRAZOLE 20 MG TABLET (FP) PO SCH (05:18)
[2018-05-03] MEDS: ONDANSETRON *ODT* 4 MG TABLET SL SCH (05:18)
[2018-05-03] MEDS ORDERED: ACETAMINOPHEN 1000 MG/100 ML VIAL (NON FORMULARY) IVPB ONE (06:00)
[2018-05-03 06:15] VITALS: BP 133/60; PULSE 82; TEMP 100.4
[2018-05-03] MEDS: LEVOTHYROXINE NA 100 MCG TABLET (FP) PO SCH (07:50)
[2018-05-03] MEDS: ALBUTEROL SO4 0.083% IH SOL 2.5 MG/3 ML VIAL.NEB. NEB SCH (08:14)
[2018-05-03] MEDS: ACETYLCYSTEINE 20% 200MG/ML 4 ML VIAL *FOR ORAL / INH USE ONLY NEB SCH (08:14)
--- NOTE | 2018-05-03 09:13 | HOSP ---
Subjective - Review of Symptoms Events since last encounter: Informed by RN that patient stopped breathing. Pt unresponsive even to painful stimuli, pupils dilated, fixed, and non-reactive. No spontaneous breathing, no heart sounds or breath sounds. Time of pronounced at 8:54am on 05/03/2018. Family at bedside and notified. Physical Examination Vital Signs: Vital Signs Temperature 100.4 F H 05/03/18 06:14 Pulse Rate 82 05/03/18 06:14 Respiratory Rate 13 05/03/18 06:14 Blood Pressure 133/60 05/03/18 06:14 O2 Sat by Pulse Oximetry (%) 96 05/02/18 21:00 Labs: CBC, BMP 05/01/18 06:00 05/01/18 06:00 Visit type - Emergency Visit Emergency Visit: No - New Patient This patient is new to me today: Yes Date on this admission: 05/03/18 - Critical Care Critical Care patient: No
[2018-05-03] MEDS: SCOPOLAMINE HYDROBROMIDE 1 PATCH PATCH.TD72 TD SCH (09:40)
[2018-05-03] MEDS: POLYETHYLENE GLYCOL 3350 119 GM BTL PO SCH (09:40)
[2018-05-03] MEDS: TIMOLOL 0.5% OPHTHALMIC SOL 5 ML BOTTLE OU SCH (09:40)
[2018-05-03] MEDS: LACTOBACILLUS ACIDOPHILUS 1 TABLET PO SCH (09:40)
--- NOTE | 2018-05-03 10:55 | DS ---
Physical Exam: SUBJECTIVE: Patient seen and examined, this AM, at bedside OBJECTIVE: Vital Signs Period Temp Pulse Resp BP Sys/Jhaveri Pulse Ox Last 24 Hr 99.2 F-100.4 F 77-82 10-13 127-133/55-60 96 PHYSICAL EXAM GENERAL: this Am no pupillary or corneal reflex No pulse LABS HOSPITAL COURSE: Date of Admission:04/27/18 Date of Discharge: 05/03/18 Minutes to complete discharge: 35 Discharge Summary Reason For Visit: STAGE IV MALIGNANT NEOPLASM OF ESOPHAGUS,PNEUMONIA Current Active Problems Acute respiratory failure with hypoxia (Acute) Bilateral pneumonia (Acute) Stage IV malignant neoplasm of esophagus (Acute) UTI (urinary tract infection) (Acute) Hospital Course: 78 yof with esophageal cancer s/p surgery/chemotherapy, Prostate Ca, renal cancer s/p nephrectomy, extensive smoking history on home hospice admitted with dyspnea, found with pneumonia and failure thrive. patient was placed on antibiotics. palliative care was consulted, and patient with transitioned to comfort measures with morphine drip, ativan. patient on 05/03/2018 at 8: 54 AM. Family at bedside. Condition: - Instructions Referrals: Avtar Melgar MD [Primary Care Provider] - Disposition: This patient is new to me today: No Emergency Visit: Yes ED Registration Date: 04/27/18 Care time: The patient presented to the Emergency Department on the above date and was hospitalized for further evaluation of their emergent condition. Critical Care patient: No - Discharge Referral Referred to [facility] Med P.C.: No
== END 2018-05-03 11:17 | disposition expired | DRG 871 ==
LOC: JER 10:50 → JERBED 14:10 → J7W 22:57
PROVIDERS: ADMIT Internal Medicine; ATTEND Hospitalist
DX: A41.9 Sepsis, unspecified organism (principal); J96.01 Acute respiratory failure with hypoxia; J69.0 Pneumonitis due to inhalation of food and vomit; E43 Unspecified severe protein-calorie malnutrition; I48.92 Unspecified atrial flutter; C15.9 Malignant neoplasm of esophagus, unspecified; C79.31 Secondary malignant neoplasm of brain; C79.00 Secondary malignant neoplasm of unspecified kidney and renal pelvis; N39.0 Urinary tract infection, site not specified; E87.2 Acidosis; R64 Cachexia; Z66 Do not resuscitate; B95.7 Other staphylococcus as the cause of diseases classified elsewhere; Z90.5 Acquired absence of kidney; E03.9 Hypothyroidism, unspecified; D35.2 Benign neoplasm of pituitary gland; G43.909 Migraine, unspecified, not intractable, without status migrainosus; I44.39 Other atrioventricular block; K21.9 Gastro-esophageal reflux disease without esophagitis; Z95.0 Presence of cardiac pacemaker; N40.0 Benign prostatic hyperplasia without lower urinary tract symptoms; Z87.891 Personal history of nicotine dependence; K57.30 Diverticulosis of large intestine without perforation or abscess without bleeding; I10 Essential (primary) hypertension; G62.89 Other specified polyneuropathies; H40.9 Unspecified glaucoma; D69.6 Thrombocytopenia, unspecified; F41.9 Anxiety disorder, unspecified
CPT/HCPCS: 36415; 71045-TC-FY; 80048; 80053; 81003; 81015; 82550; 83605; 83735; 83880; 84100; 84484; 85025; 85027; 85610; 86850; 86900; 86901; 87040; 87086; 87186; 87804; 93005; 93010; 94640; 97116-GP; 97161-GP; 99285-25; J0131; J1644; Q0162